=== PATIENT | female | born 1960 | race American Indian/Alaskan Native ===

== ENCOUNTER 2018-09-12 13:44 | Emergency (ER) | payer MEDICAID ==
[2018-09-12] MEDS ORDERED: NACL 0.9% 1000 ML 1,000 ML IV ONE ×2 (14:18→16:16)
--- NOTE | 2018-09-12 14:20 | Emergency Department Report ---
Blank Doc - Documentation Documentation: This is a 58 y.o. female that presents abdominal pain and vomiting x 4 days. History of HTN, COPD. Patient reports eating tuna at [employer] Friday and shortly after felt abdominal pain and vomiting. This initial assessment diagnostic orders/clinical plan/treatment(s) is/are saldana bject to change based on patient's health status, clinical progression and re- assessment by fellow clinical providers in the ED. Further treatment and workup at subsequent clinical providers discretion. Patient/guardians urged not to elope from ED s their condition may be serious if not clinically assessed and managed. Initial orders include: 1- Labs Fast track for further evaluation.
[2018-09-12 14:21] VITALS: BP 133/79
[2018-09-12 14:38] LABS: Basophils # (Auto) 0.1 K/mm3 (0.0-0.1); Basophils % (Auto) 1.2 % (0.0-1.8); Eosinophils # (Auto) 0.1 K/mm3 (0.0-0.4); Eosinophils % (Auto) 0.6 % (0.0-4.3); Hematocrit 39.1 % (30.3-42.9); Hemoglobin 12.2 gm/dl (10.1-14.3); Lymphocytes # (Auto) 1.8 K/mm3 (1.2-5.4); Lymphocytes % (Auto) 19.5 % (13.4-35.0); Mean Corpuscular HGB Conc 31 % (30-34); Mean Corpuscular Volume 71 fl (79-97); Monocytes # (Auto) 0.3 K/mm3 (0.0-0.8); Monocytes % (Auto) 3.3 % (0.0-7.3); Platelet Count 278 K/mm3 (140-440); Red Blood Count 5.51 M/mm3 (3.65-5.03)
[2018-09-12 15:01] LABS: Alanine Aminotransferase 19 units/L (7-56); Albumin 4.5 g/dL (3.9-5); BUN/Creatinine Ratio 12; Blood Urea Nitrogen 7 mg/dL (7-17); Calcium 9.1 mg/dL (8.4-10.2); Hemolysis Index 4
[2018-09-12 15:17] LABS: Bacteria,Urine 1+ /HPF (Negative); Bilirubin,Urine NEG (Negative); Blood,Urine NEG (Negative); Color,Urine Yellow (Yellow); Hyaline Casts,Urine 1 /LPF; Mucus,Urine 1+ /HPF; Protein,Urine <15 mg/dL mg/dL (Negative)
[2018-09-12] MEDS ORDERED: ZOFRAN IV ONE (16:16)
[2018-09-12] MEDS ORDERED: ZOFRAN ONE (16:19)
[2018-09-12] MEDS ORDERED: MORPHINE IV ONE (16:53)
--- NOTE | 2018-09-12 17:02 | Emergency Department Report ---
ED Abdominal Pain HPI - General Chief Complaint: Abdominal Pain Stated Complaint: ABD PAIN/VOMITING Time Seen by Provider: 09/12/18 14:16 Source: patient Mode of arrival: Ambulatory Limitations: No Limitations - History of Present Illness Initial Comments: 58-year-old female presents to ED with upper abdominal pain, nausea and vomiting 4 days. Patient states pain began after eating turna and ham from [employer]. Patient reported subjective fever, denies diarrhea. Patient states she has "stomach problems," but has not yet seen a bed laborer. MD Complaint: abdominal pain -: days(s) (4) Location: epigastric Radiation: none Migration to: no migration Severity: severe Severity scale (0 -10): 10 Quality: cramping Consistency: intermittent Improves With: nothing Worsens With: nothing Context: possible food poisoning Associated Symptoms: nausea, vomiting, fever. denies: diarrhea - Related Data Previous Rx's Medication Instructions Recorded Last Taken Type Dicyclomine [Bentyl] 20 mg PO QID PRN #20 tablet 09/12/18 Unknown Rx Ondansetron [Zofran Odt] 4 mg PO Q8HR PRN #20 tab.rapdis 09/12/18 Unknown Rx Allergies Allergy/AdvReac Type Severity Reaction Status Date / Time No Known Allergies Allergy Unverified 09/12/18 14:17 ED Review of Systems ROS: Stated complaint: ABD PAIN/VOMITING Other details as noted in HPI Comment: All other systems reviewed and negative Constitutional: fever Cardiovascular: denies: chest pain Gastrointestinal: abdominal pain, nausea, vomiting. denies: diarrhea ED Past Medical Hx - Past Medical History Previous Medical History?: Yes Hx Psychiatric Treatment: Yes Hx COPD: Yes Additional medical history: Depression, Sleep apnea , Cluster headaches - Surgical History Past Surgical History?: No - Social History Smoking Status: Current Every Day Smoker Substance Use Type: Alcohol - Medications Home Medications: Home Medications Medication Instructions Recorded Confirmed Last Taken Type Dicyclomine [Bentyl] 20 mg PO QID PRN #20 tablet 09/12/18 Unknown Rx Ondansetron [Zofran Odt] 4 mg PO Q8HR PRN #20 tab.rapdis 09/12/18 Unknown Rx ED Physical Exam - General Limitations: No Limitations General appearance: alert, other (uncomfortable, actively vomiting) - Head Head exam: Present: atraumatic, normocephalic - Eye Eye exam: Present: normal appearance - ENT ENT exam: Present: mucous membranes moist - Neck Neck exam: Present: normal inspection - Respiratory Respiratory exam: Present: normal lung sounds bilaterally. Absent: respiratory distress - Cardiovascular Cardiovascular Exam: Present: regular rate, normal rhythm - GI/Abdominal GI/Abdominal exam: Present: soft, tenderness (epigastric, LUQ, RUQ tenderness). Absent: distended - Extremities Exam Extremities exam: Present: normal inspection - Neurological Exam Neurological exam: Present: alert, oriented X3 - Psychiatric Psychiatric exam: Present: normal affect, normal mood - Skin Skin exam: Present: warm, dry, intact, normal color ED Course Vital Signs 09/12/18 14:17 Temperature 99 F Pulse Rate 91 H Respiratory 18 Rate Blood Pressure 133/79 Blood Pressure 133/79 [Right] O2 Sat by Pulse 97 Oximetry ED Medical Decision Making - Lab Data Result diagrams: 09/12/18 14:29 09/12/18 14:29 - Radiology Data Radiology results: pending, image reviewed interpreted by me: Abd series: lungs clear; nonspecific bowel gas pattern * PACS system down; no official interpretation at this time - Medical Decision Making 54-year-old female with nausea, vomiting, upper abdominal pain. Labs unremarkable, normal WBCs, normal lipase, normal LFTs. Abdominal series shows nonspecific bowel pattern, no evidence of obstruction. Patient given IV fluids, Zofran, morphine. Patient feeling much better at this time. Feels comfortable with discharge home. Will give prescription for Zofran and Bentyl. Will also give follow-up information for [facility]. Return precautions given. - Differential Diagnosis gastritis, pancreatitis, hepatitis Critical care attestation.: If time is entered above; I have spent that time in minutes in the direct care of this critically ill patient, excluding procedure time. ED Disposition Clinical Impression: Gastritis Disposition: DC-01 TO HOME OR SELFCARE Is pt being admited?: No Condition: Stable Instructions: Abdominal Pain (ED) Prescriptions: Dicyclomine [Bentyl] 20 mg PO QID PRN #20 tablet PRN Reason: abdominal pain Ondansetron [Zofran Odt] 4 mg PO Q8HR PRN #20 tab.rapdis PRN Reason: Vomiting Referrals: MAIRA TRINIDAD MD [Primary Care Provider] - 3-5 Days [facility] [Provider Group] - 3-5 Days Time of Disposition: 18:00
--- NOTE | 2018-09-14 15:51 | XRay Report ---
FINAL REPORT EXAM: XR ABD SERIES W CXR 1V HISTORY: abd pain, vomiting TECHNIQUE: PA view of the chest and supine and erect views of the abdomen PRIORS: None. FINDINGS: Chest: Lungs are clear. Trachea is midline. Cardiac and mediastinal silhouettes are unremarkable. Bon y structures are intact. Abdomen: The bowel gas pattern is nonspecific. No free air is identified. Soft tissues have no evide nce for mass shadows or calcifications. The bony structures are intact. IMPRESSION: 1. No acute cardiopulmonary process seen. 2. Nonspecific, nonobstructive bowel gas pattern with no acute process noted.
== END 2018-09-12 18:50 | disposition home or self-care (01) ==
LOC: ED 13:44
DX: K29.70 Gastritis, unspecified, without bleeding (principal); J45.909 Unspecified asthma, uncomplicated; F32.9 Major depressive disorder, single episode, unspecified; F17.200 Nicotine dependence, unspecified, uncomplicated
CPT/HCPCS: 36415; 74022; 80053; 81001; 83690; 85025; 96361; 96374; 96375; 99284; J2270; J2405; J7030

== ENCOUNTER 2018-09-14 20:16 | Emergency (ER) | payer MEDICAID ==
--- NOTE | 2018-09-14 20:37 | Emergency Department Report ---
Blank Doc - Documentation Documentation: This is a 58-year-old female that presents with abdominal pain with nausea and vomiting. Patient was here last week and has not filled her medications. This initial assessment diagnostic orders/clinical plan/treatment(s) is/are subject to change based on patient's health status, clinical progression and re- assessment by fellow clinical providers in the ED. Further treatment and workup at subsequent clinical providers discretion. Patient/guardians urged not to elope from ED s their condition may be serious if not clinically assessed and managed. Initial orders include: 1-Patient sent to MAIN ED for further evaluation and treatment 2- Labs 3- UA
[2018-09-14] MEDS ORDERED: NACL 0.9% 1000 ML 1,000 ML IV ONE (20:38)
[2018-09-14] MEDS ORDERED: ZOFRAN IV ONE (20:38)
[2018-09-14] MEDS ORDERED: MORPHINE IV ONE (20:38)
[2018-09-14 21:10] LABS: Basophils # (Auto) 0.1 K/mm3 (0.0-0.1); Basophils % (Auto) 0.7 % (0.0-1.8); Eosinophils # (Auto) 0.1 K/mm3 (0.0-0.4); Eosinophils % (Auto) 1.4 % (0.0-4.3); Lymphocytes % (Auto) 35.7 % (13.4-35.0); Mean Corpuscular HGB Conc 31 % (30-34); Mean Corpuscular Volume 71 fl (79-97); Monocytes # (Auto) 0.5 K/mm3 (0.0-0.8); Platelet Count 253 K/mm3 (140-440); Red Blood Count 5.29 M/mm3 (3.65-5.03)
[2018-09-14 21:22] LABS: Hematocrit 37.7 % (30.3-42.9); Hemoglobin 11.5 gm/dl (10.1-14.3); Red Cell Distribution Width 24.4 % (13.2-15.2)
[2018-09-14 21:34] LABS: Alanine Aminotransferase 16 units/L (7-56); Albumin 4.3 g/dL (3.9-5); BUN/Creatinine Ratio 10; Blood Urea Nitrogen 8 mg/dL (7-17); Calcium 8.9 mg/dL (8.4-10.2); Hemolysis Index 86
--- NOTE | 2018-09-14 22:15 | XRay Report ---
FINAL REPORT PROCEDURE: Abdominal series. TECHNIQUE: Supine and upright views of the abdomen, upright chest. HISTORY: Nausea and vomiting, abdominal pain. COMPARISON: Abdominal series 09/12/2018. FINDINGS: The heart and mediastinum appear normal. The lungs are clear and well expanded. There are no pleural effusions. There is no evidence of pneumoperitoneum. The bowel gas pattern is normal. The soft tissue s are unremarkable. There is atherosclerotic calcification in the abdominal aorta and common iliac ar teries. The regional skeleton appears intact. IMPRESSION: No evidence of acute abdominal disease.
[2018-09-14 23:48] LABS: Amorphous Crystals,Urine 1+; Bacteria,Urine 1+ /HPF (Negative); Bilirubin,Urine NEG (Negative); Blood,Urine NEG (Negative); Color,Urine Amber (Yellow); Hyaline Casts,Urine 126 /LPF; Mucus,Urine 2+ /HPF
[2018-09-15] MEDS ORDERED: REGLAN IV ONE (00:54)
--- NOTE | 2018-09-15 00:56 | Emergency Department Report ---
HPI - General Chief Complaint: Abdominal Pain Time Seen by Provider: 09/14/18 20:36 - HPI HPI: 58-year-old female presents to the emergency department from home via EMS with complaint of nausea, vomiting and generalized abdominal pain. This is been going on for the past week. The patient was seen here 2 days ago for the same symptoms. She was discharged home with a prescription for Bentyl and Zofran but says that she has been unable to fill that prescription. She has a past medical history of COPD, cluster headaches and depression. No recent travel or sick contacts at home. She goes to [place] for primary care. ED Past Medical Hx - Past Medical History Hx Psychiatric Treatment: Yes Hx COPD: Yes Additional medical history: Depression, Sleep apnea , Cluster headaches - Surgical History Past Surgical History?: No - Social History Smoking Status: Unknown if ever smoked Substance Use Type: None - Medications Home Medications: Home Medications Medication Instructions Recorded Confirmed Last Taken Type Dicyclomine [Bentyl] 20 mg PO QID PRN #20 tablet 09/15/18 Unknown Rx Ondansetron [Zofran ODT TAB] 4 mg PO Q8HR PRN #20 tab.rapdis 09/15/18 Unknown R x ED Review of Systems ROS: Stated complaint: ABD PAIN Other details as noted in HPI Comment: All other systems reviewed and negative Constitutional: denies: chills, fever Eyes: denies: eye pain, vision change ENT: denies: ear pain, throat pain Respiratory: denies: cough, shortness of breath Cardiovascular: denies: chest pain, palpitations Gastrointestinal: abdominal pain, nausea, vomiting Genitourinary: denies: dysuria, discharge Musculoskeletal: denies: back pain, arthralgia Skin: denies: rash, lesions Neurological: denies: headache, weakness Physical Exam - Physical Exam Vital Signs: Vital Signs 09/14/18 09/14/18 20:37 20:54 Temperature 97.9 F Pulse Rate 98 H Respiratory 18 20 Rate Blood Pressure 109/67 O2 Sat by Pulse 93 Oximetry Physical Exam: GENERAL: The patient is well-developed well-nourished. HEENT: Normocephalic. Atraumatic. Patient has moist mucous membranes. EYES: Extraocular motions are intact. NECK: Supple. Trachea is midline. CHEST/LUNGS: Clear to auscultation. There is no respiratory distress noted. HEART/CARDIOVASCULAR: Regular. There is no tachycardia. There is no obvious murmur. ABDOMEN: Abdomen is soft. Mild generalized tenderness to palpation. No guarding. Patient has normal bowel sounds. There is no abdominal distention. SKIN: Skin is warm and dry. NEURO: The patient is awake, alert, and oriented. The patient is cooperative. The patient has no focal neurologic deficits. The patient has normal speech. MUSCULOSKELETAL: There is no tenderness or deformity. There is no evidence of acute injury. ED Course Vital Signs 09/14/18 09/14/18 20:37 20:54 Temperature 97.9 F Pulse Rate 98 H Respiratory 18 20 Rate Blood Pressure 109/67 O2 Sat by Pulse 93 Oximetry ED Medical Decision Making - Lab Data Result diagrams: 09/14/18 20:35 09/14/18 20:35 - Radiology Data Radiology results: report reviewed, image reviewed interpreted by me: Chest x-ray does not show any pneumothorax, pleural effusion, pneumonia or obvious focal consolidation. Abdominal x-ray shows nonspecific nonobstructive bowel gas. EXAM: CT ABDOMEN PELVIS W CON HISTORY: Abd pain epigastric TECHNIQUE: Routine axial imaging was obtained of the abdomen and pelvis following the intravenous injection of 100 cc of Omnipaque 300. Delayed imaging was obtained through the kidneys ureters and bladder. Sagittal and coronal reconstructions were reviewed. FINDINGS: The lung bases are negative for infiltrates or effusions. The liver, gallbladder, biliary tree, pancreas, spleen, and adrenal glands appear normal. The kidneys enhance normally. There is no evidence of hydronephrosis. There calcification of the abdominal aorta which otherwise is normal in caliber. The portal vein enhances normally. The stomach is normal in size without evidence of mucosal edema. The bowel loops are normal in caliber and course. There are scattered uncomplicated diverticula in the colon. The appendix is not enlarged. In the pelvis the uterus and bladder appear normal. There is no evidence of free fluid or adenopathy. The skeletal structures reveal arthritic changes in the lower lumbar spine. IMPRESSION: No acute process in the abdomen and pelvis. Uncomplicated colonic diverticulosis. 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 Transcribed By: NIRALI Dictated By: DARREL LYNN MD Electronically Authenticated By: DARREL LYNN MD Signed Date/Time: 09/15/18 0302 - Medical Decision Making Patient presents to the emergency department with a one-week history of nausea, vomiting and abdominal pain. The patient was here a few days ago and had a relatively normal workup and was discharged home with some Bentyl and Zofran. However the patient says that she gave the prescription to her nephew and is unsure whether it was actually dropped off but she has not been able to get the medication. Patient's labs today have been mostly unremarkable including a CBC, metabolic panel and urinalysis but the lipase was slightly elevated at 91. This is most likely secondary to her vomiting but since she did not have a CT imaging study of the abdomen and pelvis during her last visit, I decided to do that this time. CT did not show any acute intra-abdominal or pelvic pathology and showed some chronic colonic diverticulosis. The patient was given some Zofran, pain medication and IV fluid resuscitation. She was reevaluated multiple times over multiple hours and it has improved. Vital signs stable throughout her ED course including being afebrile. The patient was able to pass an oral challenge. She will be discharged home with the Bentyl and Zofran prescriptions again, as well as referrals for gastroenterology. She will return to the ER with any worsening of her symptoms or any acute distress. - Differential Diagnosis food poisoning, celiac, diverticulitis, colitis, gastritis Critical Care Time: No Critical care attestation.: If time is entered above; I have spent that time in minutes in the direct care of this critically ill patient, excluding procedure time. ED Disposition Clinical Impression: Dehydration Abdominal pain Qualifiers: Abdominal location: generalized Qualified Code(s): R10.84 - Generalized abdominal pain Nausea & vomiting Qualifiers: Vomiting type: unspecified Vomiting Intractability: non-intractable Qualified Code(s): R11.2 - Nausea with vomiting, unspecified Disposition: DC-01 TO HOME OR SELFCARE Is pt being admited?: No Condition: Stable Instructions: Dehydration (ED), Acute Nausea and Vomiting (ED), Abdominal Pain (ED) Additional Instructions: Please follow-up with your primary care physician and a election supervisor. I have given you a referral for treatment of large gastroenterology groups. Increase your rehydration. Return to the emergency Department with any worsening of your symptoms or any acute distress. Prescriptions: Dicyclomine [Bentyl] 20 mg PO QID PRN #20 tablet PRN Reason: abdominal pain Ondansetron [Zofran ODT TAB] 4 mg PO Q8HR PRN #20 tab.rapdis PRN Reason: Vomiting Referrals: [facility] [Outside] - 3-5 Days [facility] [Provider Group] - 3-5 Days [facility] [Provider Group] - 3-5 Days Time of Disposition: 03:43
[2018-09-15 01:12] VITALS: BP 114/61
--- NOTE | 2018-09-15 03:02 | Cat Scan Report ---
FINAL REPORT EXAM: CT ABDOMEN PELVIS W CON HISTORY: Abd pain epigastric TECHNIQUE: Routine axial imaging was obtained of the abdomen and pelvis following the intravenous in jection of 100 cc of Omnipaque 300. Delayed imaging was obtained through the kidneys ureters and blad grace. Sagittal and coronal reconstructions were reviewed. FINDINGS: The lung bases are negative for infiltrates or effusions. The liver, gallbladder, biliary tree, pancreas, spleen, and adrenal glands appear normal. The kidneys enhance normally. There is no evidence of hydronephrosis. There calcification of the abdominal aorta which otherwise is normal in caliber. The portal vein enhances normally. The stomach is normal in si ze without evidence of mucosal edema. The bowel loops are normal in caliber and course. There are sca ttered uncomplicated diverticula in the colon. The appendix is not enlarged. In the pelvis the uterus and bladder appear normal. There is no evidence of free fluid or adenopathy. The skeletal structures reveal arthritic changes in the lower lumbar spine. IMPRESSION: No acute process in the abdomen and pelvis. Uncomplicated colonic diverticulosis. 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
== END 2018-09-15 04:13 | disposition home or self-care (01) ==
LOC: ED 20:16
DX: E86.0 Dehydration (principal); J44.9 Chronic obstructive pulmonary disease, unspecified; F32.9 Major depressive disorder, single episode, unspecified
CPT/HCPCS: 36415; 74022; 74177; 80053; 81001; 83690; 85025; 96361; 96374; 96375; 99285; J2270; J2405; J2765; J7030; Q9967

== ENCOUNTER 2018-09-23 02:47 | Inpatient (IN) | payer MEDICAID ==
[2018-09-23] MEDS ORDERED: NACL 0.9% 1000 ML 1,000 ML IV ONE ×2 (02:58→05:09)
[2018-09-23] MEDS ORDERED: ZOFRAN ONE (03:16)
[2018-09-23] MEDS ORDERED: PROTONIX IV ONE (03:19)
[2018-09-23] MEDS ORDERED: ZOFRAN IV ONE (03:19)
--- NOTE | 2018-09-23 03:24 | Emergency Department Report ---
ED Abdominal Pain HPI - General Chief Complaint: Abdominal Pain Stated Complaint: ABD PAIN Time Seen by Provider: 09/23/18 03:14 Source: patient, EMS Mode of arrival: Stretcher Limitations: No Limitations - History of Present Illness Initial Comments: Patient is 58 years old female with history of COPD. Patient presented to the ER via EMS and plan epigastric abdominal pain, crampy in nature associated with nausea and coffee ground emesis . Patient found to have a blood pressure of 88/42. Patient denied any fever or chills. Patient denied any diarrhea, hematochezia or melena. Patient was seen here 6 days ago and had a negative CT abdomen and pelvis. MD Complaint: abdominal pain Location: epigastric Radiation: none Migration to: no migration Severity scale (0 -10): 10 Quality: cramping - Related Data Previous Rx's Medication Instructions Recorded Last Taken Type Dicyclomine [Bentyl] 20 mg PO QID PRN #20 tablet 09/15/18 Unknown Rx Ondansetron [Zofran ODT TAB] 4 mg PO Q8HR PRN #20 tab.rapdis 09/15/18 Unknown Rx Allergies Allergy/AdvReac Type Severity Reaction Status Date / Time lisinopril AdvReac Unknown Verified 09/23/18 02:55 ED Review of Systems ROS: Stated complaint: ABD PAIN Other details as noted in HPI Comment: All other systems reviewed and negative Constitutional: denies: chills, fever Respiratory: denies: cough, orthopnea, shortness of breath, SOB with exertion, SOB at rest, wheezing Cardiovascular: denies: chest pain, palpitations Gastrointestinal: abdominal pain, nausea, vomiting. denies: diarrhea, constipation, hematemesis, melena, hematochezia Musculoskeletal: denies: back pain Neurological: denies: headache, weakness, numbness, paresthesias, confusion ED Past Medical Hx - Past Medical History Previous Medical History?: Yes Hx Hypertension: Yes Hx Psychiatric Treatment: Yes Hx COPD: Yes Additional medical history: Depression, Sleep apnea , Cluster headaches, Cholitis - Surgical History Past Surgical History?: No - Social History Smoking Status: Current Every Day Smoker Substance Use Type: Alcohol, Prescribed - Medications Home Medications: Home Medications Medication Instructions Recorded Confirmed Last Taken Type Dicyclomine [Bentyl] 20 mg PO QID PRN #20 tablet 09/15/18 Unknown Rx Ondansetron [Zofran ODT TAB] 4 mg PO Q8HR PRN #20 tab.rapdis 09/15/18 Unknown Rx ED Physical Exam - General Limitations: No Limitations General appearance: alert, in no apparent distress - Head Head exam: Present: atraumatic, normocephalic, normal inspection - Eye Eye exam: Present: normal appearance - ENT ENT exam: Present: normal exam, normal orophraynx, mucous membranes moist - Neck Neck exam: Present: normal inspection, full ROM. Absent: tenderness, meningismus - Respiratory Respiratory exam: Present: normal lung sounds bilaterally. Absent: respiratory distress, wheezes, rales, rhonchi, stridor, chest wall tenderness, accessory muscle use, decreased breath sounds, prolonged expiratory - Cardiovascular Cardiovascular Exam: Present: regular rate, normal rhythm, normal heart sounds - GI/Abdominal GI/Abdominal exam: Present: soft, tenderness (epigastric tenderness), normal bowel sounds. Absent: distended, guarding, rebound, rigid, mass, bruit, pulsatile mass, hernia - Rectal Rectal exam: Present: normal inspection, normal rectal tone, heme (-) stool. Absent: black stool, bloody stool, fecal impaction - Extremities Exam Extremities exam: Present: normal inspection, full ROM, normal capillary refill - Back Exam Back exam: Present: normal inspection, full ROM. Absent: tenderness, CVA tenderness (R), CVA tenderness (L), muscle spasm, paraspinal tenderness, vertebral tenderness - Neurological Exam Neurological exam: Present: alert, oriented X3, CN II-XII intact, normal gait, reflexes normal - Skin Skin exam: Present: warm, intact, normal color ED Course Vital Signs 09/23/18 09/23/18 09/23/18 03:10 03:15 03:45 Temperature 97.8 F Pulse Rate 86 95 H 80 Respiratory 18 18 13 Rate Blood Pressure 86/62 104/70 Blood Pressure 86/62 [Left] O2 Sat by Pulse 100 98 Oximetry - Reevaluation(s) Reevaluation #1: 09/23/18 04:22 Patient evaluated by me multiple times. Patient stated that she is feeling better. - Consultations Consultation #1: 09/23/18 04:33 I discuss the patient is Dr. Bennett Hudson from gastroenterology. Dr. Guajardo advised patient to be nothing by mouth for possible upper endoscopy this morning. ED Medical Decision Making - Lab Data Result diagrams: 09/23/18 03:09 09/23/18 03:09 - Medical Decision Making Patient is 58 years old female with history of COPD. Patient presented to the ER via EMS and plan epigastric abdominal pain, crampy in nature associated with nausea and coffee ground emesis . Patient found to have a blood pressure of 88/42. Patient denied any fever or chills. Patient denied any diarrhea, hematochezia or melena. Patient was seen here 6 days ago and had a negative CT abdomen and pelvis. Patient received normal saline 1 L and she responded with a blood pressure 122/68 now. No vomiting noticed in the emergency room. I discussed the patient is Dr. Bennett St from gastroenterology. I discussed the patient is Dr. Adler, she agreed to admit the patient to medical service. Critical Care Time: Yes Critical care time in (mins) excluding proc time.: 30 Critical care attestation.: If time is entered above; I have spent that time in minutes in the direct care of this critically ill patient, excluding procedure time. ED Disposition Clinical Impression: GI (gastrointestinal hemorrhage) Disposition: - OP ADMIT IP TO THIS HOSP Is pt being admited?: Yes Condition: Stable Instructions: Abdominal Pain (ED)
[2018-09-23 03:40] LABS: Basophils # (Auto) 0.1 K/mm3 (0.0-0.1); Eosinophils # (Auto) 0.2 K/mm3 (0.0-0.4); Eosinophils % (Auto) 1.9 % (0.0-4.3); Hematocrit 27.8 % (30.3-42.9); Hemoglobin 8.5 gm/dl (10.1-14.3); Lymphocytes # (Auto) 2.4 K/mm3 (1.2-5.4); Lymphocytes % (Auto) 23.2 % (13.4-35.0); Mean Corpuscular HGB Conc 31 % (30-34); Mean Corpuscular Volume 73 fl (79-97); Monocytes % (Auto) 9.6 % (0.0-7.3); Platelet Count 321 K/mm3 (140-440); Red Blood Count 3.84 M/mm3 (3.65-5.03)
--- NOTE | 2018-09-23 03:41 | XRay Report ---
FINAL REPORT PROCEDURE: XR ABD SERIES W CXR 1V TECHNIQUE: Abdominal series complete, including supine and upright AP views of the abdomen and front al chest. HISTORY: abdominal pain COMPARISON: No prior studies are available for comparison. FINDINGS: Heart: Normal. Mediastinum/Vessels: Normal. Lungs/Pleural space: Normal. Bowel gas pattern: Nonobstructive. Masses or calcifications: None. Bony structures: No acute osseous abnormality. Other: No free intraperitoneal air. IMPRESSION: No acute abnormality.
[2018-09-23 03:52] LABS: Red Cell Distribution Width 22.3 % (13.2-15.2)
[2018-09-23 04:02] LABS: Alanine Aminotransferase 17 units/L (7-56); Albumin 3.8 g/dL (3.9-5); BUN/Creatinine Ratio 9; Blood Urea Nitrogen 9 mg/dL (7-17); Calcium 8.9 mg/dL (8.4-10.2); Hemolysis Index 9
[2018-09-23 04:48] LABS: Bacteria,Urine 1+ /HPF (Negative); Bilirubin,Urine NEG (Negative); Blood,Urine NEG (Negative); Color,Urine Yellow (Yellow); Mucus,Urine FEW /HPF; Protein,Urine <15 mg/dL mg/dL (Negative); Urobilinogen,Urine < 2.0 mg/dL (<2.0)
[2018-09-23] MEDS ORDERED: PROTONIX 80 MG in NACL 0.9% 100 ML IV SCH (05:00)
[2018-09-23] MEDS ORDERED: TYLENOL PO PRN (05:07)
[2018-09-23] MEDS ORDERED: MORPHINE IV PRN (05:07)
[2018-09-23] MEDS ORDERED: ZOFRAN IV PRN (05:07)
[2018-09-23] MEDS ORDERED: SODIUM CHLORIDE FLUSH SYRINGE 10 ML IV PRN (05:07)
[2018-09-23] MEDS ORDERED: KCL 10 MEQ in NACL 0.9% 1000 ML 1,000 ML IV SCH (05:15)
--- NOTE | 2018-09-23 05:15 | History and Physical Report ---
History of Present Illness Date of examination: 09/23/18 Chief complaint: Abdominal pain History of present illness: Patient is a 58 year old female with history of COPD and hy pertension who presented to the ED on account of generalized abdominal pain. She described it as sharp in character, rated 10 over 10, nonradiating and constant in duration. She also reported coffee-ground emesis and passage of dark stool. She has associated headaches, lightheadedness and generalized weakness. No constipation, diarrhea, dysuria or frequency. She denied chest pain, shortness of breath, palpitation, fever, chills, cough, leg swelling, sore throat, runny nose or congestion, orthopnea or PND. No syncope or loss of consciousness. She denies chronic NSAID use. Patient stated that she recently went to [facility] and was told that she has colitis. She reported having colonoscopy about 2 or 3 years ago and was found to have hemorrhoid for which she underwent hemorrhoidectomy Past History Past Medical History: COPD, hypertension, other (depression, obstructive sleep apnea (not on CPAP)) Past Surgical History: Other (hemorrhoidectomy) Social history: smoking (she has 40 years history of cigarette smoking. She smokes one pack every 4 days. She admits to occasional alcohol use but denies illicit drug use) Family history: other (reviewed and noncontributory) Medications and Allergies Allergies Allergy/AdvReac Type Severity Reaction Status Date / Time lisinopril AdvReac Unknown Verified 09/23/18 02:55 Home Medications Medication Instructions Recorded Confirmed Last Taken Type Dicyclomine [Bentyl] 20 mg PO QID PRN #20 tablet 09/15/18 Unknown Rx Ondansetron [Zofran ODT TAB] 4 mg PO Q8HR PRN #20 tab.rapdis 09/15/18 Unknown Rx Active Meds: Active Medications Sodium Chloride (Nacl 0.9% 1000 Ml) 1,000 mls @ 250 mls/hr IV ONCE ONE Stop: 09/23/18 06:57 Last Admin: 09/23/18 03:21 Dose: 250 mls/hr Documented by: Pantoprazole Sodium 80 mg/ (Sodium Chloride) 100 mls @ 10 mls/hr IV DIRECT JARETH Review of Systems All systems: negative (except as documented in the HPI, all other systems were reviewed and negative) Exam - Constitutional Vitals: Temp Pulse Resp BP Pulse Ox 97.8 F 80 13 104/70 98 09/23/18 03:10 09/23/18 03:45 09/23/18 03:45 09/23/18 03:45 09/23/18 03:15 General appearance: Present: no acute distress, well-nourished - EENT Eyes: Present: PERRL, EOM intact ENT: hearing intact, clear oral mucosa - Neck Neck: Present: supple, normal ROM - Respiratory Respiratory effort: normal Respiratory: bilateral: CTA - Cardiovascular Heart Sounds: Present: S1 & S2. Absent: rub, click - Extremities Extremities: pulses symmetrical, No edema Peripheral Pulses: within normal limits - Abdominal General gastrointestinal: Present: soft, tender (epigastric), non-distended, normal bowel sounds Female genitourinary: Present: normal - Integumentary Integumentary: Present: clear, warm, dry - Musculoskeletal Musculoskeletal: gait normal, strength equal bilaterally - Psychiatric Psychiatric: appropriate mood/affect, intact judgment & insight - Neurologic Neurologic: CNII-XII intact, moves all extremities Results - Labs CBC & Chem 7: 09/23/18 03:09 09/23/18 03:09 Labs: Laboratory Last Values WBC 10.4 K/mm3 (4.5-11.0) 09/23/18 03:09 RBC 3.84 M/mm3 (3.65-5.03) 09/23/18 03:09 Hgb 8.5 gm/dl (10.1-14.3) L 09/23/18 03:09 Hct 27.8 % (30.3-42.9) L 09/23/18 03:09 MCV 73 fl (79-97) L 09/23/18 03:09 MCH 22 pg (28-32) L 09/23/18 03:09 MCHC 31 % (30-34) 09/23/18 03:09 RDW 22.3 % (13.2-15.2) H 09/23/18 03:09 Plt Count 321 K/mm3 (140-440) 09/23/18 03:09 Lymph % (Auto) 23.2 % (13.4-35.0) 09/23/18 03:09 [place] % (Auto) 9.6 % (0.0-7.3) H 09/23/18 03:09 Eos % (Auto) 1.9 % (0.0-4.3) 09/23/18 03:09 Baso % (Auto) 1.0 % (0.0-1.8) 09/23/18 03:09 Lymph # 2.4 K/mm3 (1.2-5.4) 09/23/18 03:09 [place] # 1.0 K/mm3 (0.0-0.8) H 09/23/18 03:09 Eos # 0.2 K/mm3 (0.0-0.4) 09/23/18 03:09 Baso # 0.1 K/mm3 (0.0-0.1) 09/23/18 03:09 Seg Neutrophils % 64.3 % (40.0-70.0) 09/23/18 03:09 Seg Neutrophils # 6.7 K/mm3 (1.8-7.7) 09/23/18 03:09 Sodium 134 mmol/L (137-145) L 09/23/18 03:09 Potassium 3.7 mmol/L (3.6-5.0) 09/23/18 03:09 Chloride 95.3 mmol/L (98-107) L 09/23/18 03:09 Carbon Dioxide 28 mmol/L (22-30) 09/23/18 03:09 Anion Gap 14 mmol/L 09/23/18 03:09 BUN 9 mg/dL (7-17) 09/23/18 03:09 Creatinine 1.0 mg/dL (0.7-1.2) 09/23/18 03:09 Estimated GFR > 60 ml/min 09/23/18 03:09 BUN/Creatinine Ratio 9 % 09/23/18 03:09 Glucose 120 mg/dL (65-100) H 09/23/18 03:09 Lactic Acid 2.50 mmol/L (0.7-2.0) H* 09/23/18 03:43 Calcium 8.9 mg/dL (8.4-10.2) 09/23/18 03:09 Total Bilirubin 0.20 mg/dL (0.1-1.2) 09/23/18 03:09 AST 19 units/L (5-40) 09/23/18 03:09 ALT 17 units/L (7-56) 09/23/18 03:09 Alkaline Phosphatase 45 units/L (35-129) 09/23/18 03:09 Total Protein 6.1 g/dL (6.3-8.2) L 09/23/18 03:09 Albumin 3.8 g/dL (3.9-5) L 09/23/18 03:09 Albumin/Globulin Ratio 1.7 % 09/23/18 03:09 Urine Color Yellow (Yellow) 09/23/18 04:35 Urine Turbidity Slightly-cloudy (Clear) 09/23/18 04:35 Urine pH 5.0 (5.0-7.0) 09/23/18 04:35 Ur Specific [place] 1.003 (1.003-1.030) 09/23/18 04:35 Urine Protein <15 mg/dl mg/dL (Negative) 09/23/18 04:35 Urine Glucose (UA) Neg mg/dL (Negative) 09/23/18 04:35 Urine Ketones Neg mg/dL (Negative) 09/23/18 04:35 Urine Blood Neg (Negative) 09/23/18 04:35 Urine Nitrite Neg (Negative) 09/23/18 04:35 Urine Bilirubin Neg (Negative) 09/23/18 04:35 Urine Urobilinogen < 2.0 mg/dL (<2.0) 09/23/18 04:35 Ur Leukocyte Esterase Neg (Negative) 09/23/18 04:35 Urine WBC (Auto) 4.0 /HPF (0.0-6.0) 09/23/18 04:35 Urine RBC (Auto) 1.0 /HPF (0.0-6.0) 09/23/18 04:35 U Epithel Cells (Auto) 3.0 /HPF (0-13.0) 09/23/18 04:35 Urine Bacteria (Auto) 1+ /HPF (Negative) 09/23/18 04:35 Urine Mucus Few /HPF 09/23/18 04:35 Blood Type AB POSITIVE 09/23/18 03:25 Antibody Screen Negative 09/23/18 03:25 Assessment and Plan Assessment and plan: Upper GI bleed -On IV Protonix drip -We'll monitor H&H -GI consulted in the ED Anemia of acute loss -Patient's hemoglobin level dropped from 11.5 on 09/14/2018 to 8.5 today -We will monitor H&H and transfuse as needed Hypotension -likely secondary to volume depletion -On IV fluid, will monitor blood pressure Lactic acidosis -Probably secondary to the acute process -No evidence of active infection -We'll hydrate patient and monitor level COPD -No acute exacerbation -On PRN duonebs Depression, stable Tobacco abuse -Cessation recommended Disposition: Patient will be admitted on inpatient status. Discharge will depend on clinical course Time spent: 38 minutes
[2018-09-23] MEDS ORDERED: PROVENTIL IH PRN (05:25)
[2018-09-23] MEDS ORDERED: KCL 10MEQ/100ML 0 MEQ/0 ML BAG IV ONE (05:39)
--- NOTE | 2018-09-23 10:22 | Gastroenterology Consultation ---
<SHANDRA SIMS - Last Filed: 09/23/18 10:48> History of Present Illness - Reason for Consult Consult date: 09/23/18 GI bleed Requesting physician: MICHAEL JACOB - History of Present Illness Patient is a 58 y/o female with PMH of HTN, COPD, depression, sleep apnea, and cluster headaches on whom GI has been consulted for GI bleed. This morning patient was resting in bed w/o acute distress. She reports epigastric pain with associated N/V x 2 weeks with symptoms developing after eating a tuna sandwich from [employer]. Admits to an episode of coffee-ground emesis and black stool last , which have now resolved. Last BM was yesterday with brown stool. No hematemesis or hematochezia. No active signs of bleeding since admission per nursing. Has had some recent wt loss on approximately 5-10lbs due to current symptoms. Denies fever, CP, SOB, dysphagia, odynophagia, diarrhea, or constipation. No NSAID use. No hx of PUD or previous EGD. Drinks a 12 pack of beer a week but no hx of liver disease. Smokes 1 pack of cigarettes every 3-4 days. Reports having a colonoscopy about 2-3 years ago which showed hemorrhoids and was treated with hemorrhoidectomy. 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 Past History Past Medical History: COPD, hypertension, other (depression, obstructive sleep apnea (not on CPAP), cluster headaches) Past Surgical History: Other (hemorrhoidectomy) Social history: smoking (she has 40 years history of cigarette smoking. She smokes one pack every 4 days), other (alcohol (12 pack/week)) Family history: other (reviewed and noncontributory) Medications and Allergies Allergies Allergy/AdvReac Type Severity Reaction Status Date / Time lisinopril AdvReac Unknown Verified 09/23/18 02:55 Home Medications Medication Instructions Recorded Confirmed Last Taken Type Dicyclomine [Bentyl] 20 mg PO QID PRN #20 tablet 09/15/18 09/23/18 Unknown Rx Ondansetron [Zofran ODT TAB] 4 mg PO Q8HR PRN #20 tab.rapdis 09/15/18 09/23/18 Unknown Rx Atorvastatin [Lipitor Tab] 40 mg PO QDAY 09/23/18 09/23/18 Unknown History Ciprofloxacin HCl [Ciprofloxacin 500 mg PO BID 09/23/18 09/23/18 Unknown History TAB] Verapamil ER [Calan Sr] 180 mg PO QDAY 09/23/18 09/23/18 Unknown History metroNIDAZOLE [Metronidazole] 500 mg PO TID 09/23/18 09/23/18 Unknown History Active Meds: Active Medications Acetaminophen (Tylenol) 650 mg PO Q4H PRN PRN Reason: Pain MILD(1-3)/Fever >100.5/SOTOMAYOR Albuterol (Proventil) 2.5 mg IH Q4H PRN PRN Reason: Shortness Of Breath Pantoprazole Sodium 80 mg/ (Sodium Chloride) 100 mls @ 10 mls/hr IV DIRECT JARETH Last Admin: 09/23/18 05:31 Dose: 8 mg/hr, 10 mls/hr Documented by: Potassium Chloride 10 meq/ (Sodium Chloride) 1,005 mls @ 125 mls/hr IV DIRECT JARETH Morphine Sulfate (Morphine) 2 mg IV Q4H PRN PRN Reason: Pain, Moderate (4-6) Last Admin: 09/23/18 07:28 Dose: 2 mg Documented by: Ondansetron HCl (Zofran) 4 mg IV Q8H PRN PRN Reason: Nausea And Vomiting Sodium Chloride (Sodium Chloride Flush Syringe 10 Ml) 10 ml IV BID JARETH Sodium Chloride (Sodium Chloride Flush Syringe 10 Ml) 10 ml IV PRN PRN PRN Reason: LINE FLUSH medications reviewed/updated as required Review of Systems - Review of Systems All systems: negative Gastrointestinal: abdominal pain (epigastric), nausea, vomiting, coffee ground emesis (now resolved), other (black stool-now resolved), no diarrhea, no hematemesis, no hematochezia Exam - Constitutional Vital Signs: Temp Pulse Resp BP Pulse Ox 98.8 F 80 22 102/59 100 09/23/18 07:54 09/23/18 05:51 09/23/18 07:54 09/23/18 07:54 09/23/18 05:51 General appearance: no acute distress - EENT Eyes: PERRL, EOM intact ENT: hearing intact - Respiratory Respiratory effort: normal Respiratory: bilateral: diminished - Cardiovascular Rhythm: regular Heart Sounds: Present: S1 & S2 - Gastrointestinal General gastrointestinal: Present: soft, tender, non-distended, normal bowel sounds (slight TTP in epigastric area) - Neurologic Neurological: alert and oriented x3 - Labs CBC & Chem 7: 09/23/18 03:09 09/23/18 03:09 Lab Results: Laboratory Results - last 24 hr 09/23/18 09/23/18 09/23/18 03:09 03:09 03:25 WBC 10.4 RBC 3.84 Hgb 8.5 L Hct 27.8 L MCV 73 L MCH 22 L MCHC 31 RDW 22.3 H Plt Count 321 Lymph % (Auto) 23.2 [place] % (Auto) 9.6 H Eos % (Auto) 1.9 Baso % (Auto) 1.0 Lymph # 2.4 [place] # 1.0 H Eos # 0.2 Baso # 0.1 Seg Neutrophils % 64.3 Seg Neutrophils # 6.7 Sodium 134 L Potassium 3.7 Chloride 95.3 L Carbon Dioxide 28 Anion Gap 14 BUN 9 Creatinine 1.0 Estimated GFR > 60 BUN/Creatinine Ratio 9 Glucose 120 H Lactic Acid Calcium 8.9 Total Bilirubin 0.20 AST 19 ALT 17 Alkaline Phosphatase 45 Total Protein 6.1 L Albumin 3.8 L Albumin/Globulin Ratio 1.7 Lipase Urine Color Urine Turbidity Urine pH Ur Specific [place] Urine Protein Urine Glucose (UA) Urine Ketones Urine Blood Urine Nitrite Urine Bilirubin Urine Urobilinogen Ur Leukocyte Esterase Urine WBC (Auto) Urine RBC (Auto) U Epithel Cells (Auto) Urine Bacteria (Auto) Urine Mucus Blood Type AB POSITIVE Antibody Screen Negative 09/23/18 09/23/18 09/23/18 03:43 04:35 05:45 WBC RBC Hgb Hct MCV MCH MCHC RDW Plt Count Lymph % (Auto) [place] % (Auto) Eos % (Auto) Baso % (Auto) Lymph # [place] # Eos # Baso # Seg Neutrophils % Seg Neutrophils # Sodium Potassium Chloride Carbon Dioxide Anion Gap BUN Creatinine Estimated GFR BUN/Creatinine Ratio Glucose Lactic Acid 2.50 H* 0.80 Calcium Total Bilirubin AST ALT Alkaline Phosphatase Total Protein Albumin Albumin/Globulin Ratio Lipase Urine Color Yellow Urine Turbidity Slightly-cloudy Urine pH 5.0 Ur Specific [place] 1.003 Urine Protein <15 mg/dl Urine Glucose (UA) Neg Urine Ketones Neg Urine Blood Neg Urine Nitrite Neg Urine Bilirubin Neg Urine Urobilinogen < 2.0 Ur Leukocyte Esterase Neg Urine WBC (Auto) 4.0 Urine RBC (Auto) 1.0 U Epithel Cells (Auto) 3.0 Urine Bacteria (Auto) 1+ Urine Mucus Few Blood Type Antibody Screen 09/23/18 05:45 WBC RBC Hgb Hct MCV MCH MCHC RDW Plt Count Lymph % (Auto) [place] % (Auto) Eos % (Auto) Baso % (Auto) Lymph # [place] # Eos # Baso # Seg Neutrophils % Seg Neutrophils # Sodium Potassium Chloride Carbon Dioxide Anion Gap BUN Creatinine Estimated GFR BUN/Creatinine Ratio Glucose Lactic Acid Calcium Total Bilirubin AST ALT Alkaline Phosphatase Total Protein Albumin Albumin/Globulin Ratio Lipase 41 Urine Color Urine Turbidity Urine pH Ur Specific [place] Urine Protein Urine Glucose (UA) Urine Ketones Urine Blood Urine Nitrite Urine Bilirubin Urine Urobilinogen Ur Leukocyte Esterase Urine WBC (Auto) Urine RBC (Auto) U Epithel Cells (Auto) Urine Bacteria (Auto) Urine Mucus Blood Type Antibody Screen Assessment and Plan 1.epigastric pain 2.N/V 3.GI bleed? 4.CGE/black stool-resolved -afebrile -WBC, BUN (9), LFTs, and lipase-WNL -stool occult negative -H/H 8.5.8- trended down -continue to monitor H/H and transfuse as needed -hold blood thinning medications -abd CT 09/15/18 w/o acute process -colonoscopy about 2-3 years ago which showed hemorrhoids and was treated with hemorrhoidectomy per pt report -patient reports epigastric pain with N/V x 2 weeks after eating a tuna sandwich as [employer]. Had 1 episode of coffee-ground emesis and black stool last , which has now resolved. No hematemesis or diarrhea. -currently HD stable with no active signs of bleeding -etiology unclear- possible ulcer vs GB vs other -will schedule for EGD tomorrow -okay for clears today then NPO after MN -abd U/S -continue PPI and supportive care -will follow <NICOLASA YUN - Last Filed: 09/23/18 16:03> Medications and Allergies Active Meds: Active Medications Acetaminophen (Tylenol) 650 mg PO Q4H PRN PRN Reason: Pain MILD(1-3)/Fever >100.5/SOTOMAYOR Albuterol (Proventil) 2.5 mg IH Q4H PRN PRN Reason: Shortness Of Breath Potassium Chloride 10 meq/ (Sodium Chloride) 1,005 mls @ 125 mls/hr IV DIRECT [facility] Last Admin: 09/23/18 11:18 Dose: 125 mls/hr Documented by: Morphine Sulfate (Morphine) 2 mg IV Q4H PRN PRN Reason: Pain, Moderate (4-6) Last Admin: 09/23/18 07:28 Dose: 2 mg Documented by: Ondansetron HCl (Zofran) 4 mg IV Q8H PRN PRN Reason: Nausea And Vomiting Pantoprazole Sodium (Protonix) 40 mg IV BID [facility] Sodium Chloride (Sodium Chloride Flush Syringe 10 Ml) 10 ml IV BID [facility] Last Admin: 09/23/18 11:19 Dose: 10 ml Documented by: Sodium Chloride (Sodium Chloride Flush Syringe 10 Ml) 10 ml IV PRN PRN PRN Reason: LINE FLUSH Exam - Constitutional Vital Signs: Temp Pulse Resp BP Pulse Ox 98.0 F 84 22 106/53 94 09/23/18 11:35 09/23/18 12:11 09/23/18 11:35 09/23/18 12:11 09/23/18 11:40 - Labs CBC & Chem 7: 09/23/18 15:18 09/23/18 03:09 Lab Results: Laboratory Results - last 24 hr 09/23/18 09/23/18 09/23/18 03:09 03:09 03:25 WBC 10.4 RBC 3.84 Hgb 8.5 L Hct 27.8 L MCV 73 L MCH 22 L MCHC 31 RDW 22.3 H Plt Count 321 Lymph % (Auto) 23.2 [place] % (Auto) 9.6 H Eos % (Auto) 1.9 Baso % (Auto) 1.0 Lymph # 2.4 [place] # 1.0 H Eos # 0.2 Baso # 0.1 Seg Neutrophils % 64.3 Seg Neutrophils # 6.7 Sodium 134 L Potassium 3.7 Chloride 95.3 L Carbon Dioxide 28 Anion Gap 14 BUN 9 Creatinine 1.0 Estimated GFR > 60 BUN/Creatinine Ratio 9 Glucose 120 H Lactic Acid Calcium 8.9 Total Bilirubin 0.20 AST 19 ALT 17 Alkaline Phosphatase 45 Total Protein 6.1 L Albumin 3.8 L Albumin/Globulin Ratio 1.7 Lipase Urine Color Urine Turbidity Urine pH Ur Specific [place] Urine Protein Urine Glucose (UA) Urine Ketones Urine Blood Urine Nitrite Urine Bilirubin Urine Urobilinogen Ur Leukocyte Esterase Urine WBC (Auto) Urine RBC (Auto) U Epithel Cells (Auto) Urine Bacteria (Auto) Urine Mucus Blood Type AB POSITIVE Antibody Screen Negative 09/23/18 09/23/18 09/23/18 03:43 04:35 05:45 WBC RBC Hgb Hct MCV MCH MCHC RDW Plt Count Lymph % (Auto) [place] % (Auto) Eos % (Auto) Baso % (Auto) Lymph # [place] # Eos # Baso # Seg Neutrophils % Seg Neutrophils # Sodium Potassium Chloride Carbon Dioxide Anion Gap BUN Creatinine Estimated GFR BUN/Creatinine Ratio Glucose Lactic Acid 2.50 H* 0.80 Calcium Total Bilirubin AST ALT Alkaline Phosphatase Total Protein Albumin Albumin/Globulin Ratio Lipase Urine Color Yellow Urine Turbidity Slightly-cloudy Urine pH 5.0 Ur Specific [place] 1.003 Urine Protein <15 mg/dl Urine Glucose (UA) Neg Urine Ketones Neg Urine Blood Neg Urine Nitrite Neg Urine Bilirubin Neg Urine Urobilinogen < 2.0 Ur Leukocyte Esterase Neg Urine WBC (Auto) 4.0 Urine RBC (Auto) 1.0 U Epithel Cells (Auto) 3.0 Urine Bacteria (Auto) 1+ Urine Mucus Few Blood Type Antibody Screen 09/23/18 09/23/18 05:45 15:18 WBC RBC Hgb 7.1 L Hct 23.8 L MCV MCH MCHC RDW Plt Count Lymph % (Auto) [place] % (Auto) Eos % (Auto) Baso % (Auto) Lymph # [place] # Eos # Baso # Seg Neutrophils % Seg Neutrophils # Sodium Potassium Chloride Carbon Dioxide Anion Gap BUN Creatinine Estimated GFR BUN/Creatinine Ratio Glucose Lactic Acid Calcium Total Bilirubin AST ALT Alkaline Phosphatase Total Protein Albumin Albumin/Globulin Ratio Lipase 41 Urine Color Urine Turbidity Urine pH Ur Specific [place] Urine Protein Urine Glucose (UA) Urine Ketones Urine Blood Urine Nitrite Urine Bilirubin Urine Urobilinogen Ur Leukocyte Esterase Urine WBC (Auto) Urine RBC (Auto) U Epithel Cells (Auto) Urine Bacteria (Auto) Urine Mucus Blood Type Antibody Screen Assessment and Plan Pt seen and examined. Agree with note above. pt reports improvement in abdominal pain. no signs of active bleeding at present time. will plan for egd tomorrow.
[2018-09-23] MEDS: SODIUM CHLORIDE FLUSH SYRINGE 10 ML IV SCH ×2 (11:19→23:08)
[2018-09-23 15:43] LABS: Hematocrit 23.8 % (30.3-42.9); Hemoglobin 7.1 gm/dl (10.1-14.3)
[2018-09-23] MEDS ORDERED: BENTYL PO PRN (16:44)
[2018-09-23 17:04] LABS: Iron 11 ug/dL (37-170); Total Iron Binding Capacity 380 mcg/dL (250-450)
[2018-09-23] MEDS: PROTONIX IV SCH (23:08)
[2018-09-24 07:40] LABS: Basophils # (Auto) 0.1 K/mm3 (0.0-0.1); Eosinophils # (Auto) 0.2 K/mm3 (0.0-0.4); Eosinophils % (Auto) 3.8 % (0.0-4.3); Hematocrit 25.7 % (30.3-42.9); Hemoglobin 7.8 gm/dl (10.1-14.3); Lymphocytes # (Auto) 1.9 K/mm3 (1.2-5.4); Lymphocytes % (Auto) 34.2 % (13.4-35.0); Mean Corpuscular HGB Conc 31 % (30-34); Mean Corpuscular Volume 72 fl (79-97); Monocytes # (Auto) 0.5 K/mm3 (0.0-0.8); Monocytes % (Auto) 9.6 % (0.0-7.3); Platelet Count 345 K/mm3 (140-440); Red Blood Count 3.54 M/mm3 (3.65-5.03)
[2018-09-24 08:10] LABS: BUN/Creatinine Ratio 6; Blood Urea Nitrogen 4 mg/dL (7-17); Calcium 8.3 mg/dL (8.4-10.2); Hemolysis Index 0
--- NOTE | 2018-09-24 10:02 | Ultrasound Report ---
ULTRASOUND ABDOMEN COMPLETE: TECHNIQUE: Transabdominal ultrasound with color Doppler interrogation. HISTORY: Abdominal pain, nausea and vomiting. COMPARISON: none. FINDINGS: LIVER: Normal. BILIARY SYSTEM: Normal. PANCREAS: Normal. SPLEEN: Normal. KIDNEYS: Normal. AORTA/IVC: Normal. ASCITES: None. IMPRESSION: Unremarkable exam.
--- NOTE | 2018-09-24 10:28 | Progress Note ---
Assessment and Plan Assessment and plan: 58F who pw epigastric pain, N/V x2 weeks, c/o coffee ground emesis, and melena. Drinks 12 beers a week, denies hx of liver disease pmh; copd, htn, CATHLEEN- not on cpap, cluster HAs Dx UGIB acute blood loss anemia Hypotension hx of COPD Plan cont PPI Hg dropped from 11.5 on 09/14 to 8.5, transfuse to keep hg above 8 cont IVF GI input appreciated, for EGD today DVT ppx- scds History Interval history: Review of systems Constitutional: No fevers, no malaise, no joint pains CVS: No chest pain, no orthopnea, no dyspnea on exertion, no pedal edema GI: No abdominal pain, no diarrhea, no vomiting, no constipation Respiratory: No shortness of breath, no wheezing, no coughing Hospitalist Physical - Physical exam Narrative exam: General.: Appears well, no distress, nontoxic HEENT: Moist mucous membranes, extraocular muscles intact, no lymphadenopathy Neck: supple Cardiac: S1-S2 heard Lungs: clear to auscultation bilaterally Abdomen: soft , nontender, nondistended, bowel sounds positive Extremities: no edema clubbing or cyanosis Skin: no rash or lesions Neurologic: no gross focal deficits Psych: calm, and cooperative - Constitutional Vitals: Temp Pulse Resp BP Pulse Ox 98.1 F 83 18 128/77 88 09/24/18 05:34 09/24/18 05:34 09/24/18 05:34 09/24/18 05:34 09/24/18 05:34 General appearance: Present: no acute distress, well-nourished Results - Labs CBC & Chem 7: 09/24/18 06:52 09/24/18 06:52 Labs: Laboratory Last Values WBC 5.6 K/mm3 (4.5-11.0) 09/24/18 06:52 RBC 3.54 M/mm3 (3.65-5.03) L 09/24/18 06:52 Hgb 7.8 gm/dl (10.1-14.3) L 09/24/18 06:52 Hct 25.7 % (30.3-42.9) L 09/24/18 06:52 MCV 72 fl (79-97) L 09/24/18 06:52 MCH 22 pg (28-32) L 09/24/18 06:52 MCHC 31 % (30-34) 09/24/18 06:52 RDW 23.0 % (13.2-15.2) H 09/24/18 06:52 Plt Count 345 K/mm3 (140-440) 09/24/18 06:52 Lymph % (Auto) 34.2 % (13.4-35.0) 09/24/18 06:52 [place] % (Auto) 9.6 % (0.0-7.3) H 09/24/18 06:52 Eos % (Auto) 3.8 % (0.0-4.3) 09/24/18 06:52 Baso % (Auto) 1.0 % (0.0-1.8) 09/24/18 06:52 Lymph # 1.9 K/mm3 (1.2-5.4) 09/24/18 06:52 [place] # 0.5 K/mm3 (0.0-0.8) 09/24/18 06:52 Eos # 0.2 K/mm3 (0.0-0.4) 09/24/18 06:52 Baso # 0.1 K/mm3 (0.0-0.1) 09/24/18 06:52 Seg Neutrophils % 51.4 % (40.0-70.0) 09/24/18 06:52 Seg Neutrophils # 2.9 K/mm3 (1.8-7.7) 09/24/18 06:52 Sodium 144 mmol/L (137-145) D 09/24/18 06:52 Potassium 3.4 mmol/L (3.6-5.0) L 09/24/18 06:52 Chloride 105.3 mmol/L (98-107) 09/24/18 06:52 Carbon Dioxide 27 mmol/L (22-30) 09/24/18 06:52 Anion Gap 15 mmol/L 09/24/18 06:52 BUN 4 mg/dL (7-17) L 09/24/18 06:52 Creatinine 0.7 mg/dL (0.7-1.2) 09/24/18 06:52 Estimated GFR > 60 ml/min 09/24/18 06:52 BUN/Creatinine Ratio 6 % 09/24/18 06:52 Glucose 94 mg/dL (65-100) 09/24/18 06:52 Lactic Acid 0.80 mmol/L (0.7-2.0) 09/23/18 05:45 Calcium 8.3 mg/dL (8.4-10.2) L 09/24/18 06:52 Magnesium 2.30 mg/dL (1.7-2.3) 09/24/18 06:52 Iron 11 ug/dL (37-170) L 09/23/18 15:18 TIBC 380 mcg/dL (250-450) 09/23/18 15:18 Total Bilirubin 0.20 mg/dL (0.1-1.2) 09/23/18 03:09 AST 19 units/L (5-40) 09/23/18 03:09 ALT 17 units/L (7-56) 09/23/18 03:09 Alkaline Phosphatase 45 units/L (35-129) 09/23/18 03:09 Total Protein 6.1 g/dL (6.3-8.2) L 09/23/18 03:09 Albumin 3.8 g/dL (3.9-5) L 09/23/18 03:09 Albumin/Globulin Ratio 1.7 % 09/23/18 03:09 Lipase 41 units/L (13-60) 09/23/18 05:45 Urine Color Yellow (Yellow) 09/23/18 04:35 Urine Turbidity Slightly-cloudy (Clear) 09/23/18 04:35 Urine pH 5.0 (5.0-7.0) 09/23/18 04:35 Ur Specific [place] 1.003 (1.003-1.030) 09/23/18 04:35 Urine Protein <15 mg/dl mg/dL (Negative) 09/23/18 04:35 Urine Glucose (UA) Neg mg/dL (Negative) 09/23/18 04:35 Urine Ketones Neg mg/dL (Negative) 09/23/18 04:35 Urine Blood Neg (Negative) 09/23/18 04:35 Urine Nitrite Neg (Negative) 09/23/18 04:35 Urine Bilirubin Neg (Negative) 09/23/18 04:35 Urine Urobilinogen < 2.0 mg/dL (<2.0) 09/23/18 04:35 Ur Leukocyte Esterase Neg (Negative) 09/23/18 04:35 Urine WBC (Auto) 4.0 /HPF (0.0-6.0) 09/23/18 04:35 Urine RBC (Auto) 1.0 /HPF (0.0-6.0) 09/23/18 04:35 U Epithel Cells (Auto) 3.0 /HPF (0-13.0) 09/23/18 04:35 Urine Bacteria (Auto) 1+ /HPF (Negative) 09/23/18 04:35 Urine Mucus Few /HPF 09/23/18 04:35 Blood Type AB POSITIVE 09/23/18 03:25 Antibody Screen Negative 09/23/18 03:25
[2018-09-24] MEDS ORDERED: NACL 0.9% 1000 ML 1,000 ML IV SCH (12:00)
[2018-09-24] MEDS ORDERED: WATER FOR IRRIG STERILE IR ONE (12:07)
[2018-09-24] MEDS ORDERED: VERSED ONE (12:25)
[2018-09-24] MEDS ORDERED: DIPRIVAN 10 MG/ML IV ONE (12:25)
--- NOTE | 2018-09-24 12:36 | Operative Report ---
Operative Report Operative Report: Esophagogastroduodenoscopy Procedure Note with Biopsies Date of procedure: 09/24/2018 Endoscopist: Han Blair Pre-op diagnosis/indication: Upper GI bleed Post-op diagnosis: Large cratered ulcer in duodenal bulb (clean based); multiple small gastric superficial ulcers in antrum MEDICATIONS: MAC COMPLICATIONS: No immediate complications ESTIMATED BLOOD LOSS: Minimal DESCRIPTION OF PROCEDURE: After consent was obtained, the patient was placed in the left lateral decubitis position. The [email or web address] endoscope was inserted into the patient's mouth under direct vision and advanced to the 2nd portion of the duodenum without difficulty. The patient tolerated the procedure well. The views of the mucosa were good. The patient's vital signs were monitored continuously throughout the procedure. FINDINGS: The esophagus appeared normal. There were two superficial clean based ulcers in the antrum of the stomach. There was moderate erythema in the distal antrum/pre-pylorus. Biopsies were obtained from the stomach to evaluate for H pylori. There was a large (~2 x 2 cm) cratered ulcer in the duodenal bulb. The ulcer was clean based without high risk bleeding stigmata. The surrounding mucosa was inflamed and erythematous. The rest of the duodenum appeared normal with bile seen throughout the visualized portion of the duodenum. IMPRESSION: 1. Large duodenal, clean based ulcer - likely source of recent acute blood loss anemia. No high risk bleeding lesions seen during the procedure. 2. Clean based superficial gastric ulcers. Biopsies obtained from the stomach to rule out H pylori. RECOMMENDATIONS: -okay to restart diet -follow-up path -avoid NSAID medications -PPI BID dosing for 2 months, then once daily -okay to d/c tomorrow if H/H stable and no further bleeding -f/u in GI clinic in 2-3 weeks
--- NOTE | 2018-09-24 15:12 | Anesthesia Day of Surgery ---
Anesthesia Day of Surgery - Day of Surgery Patient Examined: Yes Patient H&P Reviewed: Yes Patient is NPO: Yes Beta Blockers: No Cardiac Clearance: No
--- NOTE | 2018-09-24 15:13 | Anesthesia Day of Surgery ---
Anesthesia Day of Surgery - Day of Surgery Patient Examined: Yes Patient H&P Reviewed: Yes Patient is NPO: Yes Beta Blockers: No Cardiac Clearance: No Pulmonary Clearance: No
--- NOTE | 2018-09-24 15:14 | Anesthesia Consultation ---
Anesthesia Consult and Med Hx Date of service: 09/24/18 - Airway Anesthetic Teeth Evaluation: Good ROM Head & Neck: Adequate Mental/Hyoid Distance: Adequate Mallampati Class: Class III Intubation Access Assessment: Good - Pulmonary Exam CTA: Yes - Cardiac Exam Cardiac Exam: No Murmur - Pre-Operative Health Status ASA Pre-Surgery Classification: ASA3 Proposed Anesthetic Plan: MAC - Pulmonary Hx Smoking: Yes COPD: Yes Hx Pneumonia: Yes - Cardiovascular System Hx Hypertension: Yes
[2018-09-24] MEDS: CALAN SR PO SCH (15:18)
[2018-09-24] MEDS: PROTONIX IV SCH ×2 (15:19→21:33)
[2018-09-24] MEDS: SODIUM CHLORIDE FLUSH SYRINGE 10 ML IV SCH (21:37)
--- NOTE | 2018-09-25 09:56 | Gastroenterology Progress Note ---
<SHANDRA SIMS - Last Filed: 09/25/18 09:47> Assessment and Plan 1.epigastric pain 2.N/V 3.GI bleed? 4.CGE/black stool-resolved -afebrile -WBC, LFTs, and lipase-WNL -stool occult negative -abd U/S negative -abd CT 09/15/18 w/o acute process -colonoscopy about 2-3 years ago which showed hemorrhoids and was treated with hemorrhoidectomy per pt report -H/H 7.8/25.7-stable trended down -continue to monitor H/H and transfuse as needed -s/p EGD yesterday that showed a large duodenal clean based ulcer (likely source of recent blood loss anemia) and clean based superficial gastric ulcers- no high risk bleeding lesions -bx results pending-f/u in clinic -clinically, patient is stable with no active signs of bleeding. Reports feeling better with no abd pain or N/V. Tolerating diet. -avoid NSAIDs -continue PPI BID x 2 months, then daily -continue supportive care -patient okay to be d/c per GI standpoint on high dose PPI with f/u in ~ 2weeks in clinic -need for f/u discussed with patient with understanding voiced-office inf ormation/card given to pt -will sign off, please call if needed Subjective Date of service: 09/25/18 Principal diagnosis: GI bleed Interval history: No acute distress. Reports feeling much better with no abd pain, N/V, or active signs of bleeding. Tolerating diet. Objective - Constitutional Vitals: Temp Pulse Resp BP Pulse Ox 98.4 F 71 18 147/76 99 09/25/18 06:10 09/25/18 06:10 09/25/18 06:10 09/25/18 06:10 09/25/18 06:10 General appearance: no acute distress - EENT Eyes: PERRL, EOM intact ENT: hearing intact - Respiratory Respiratory: bilateral: diminished - Cardiovascular Rhythm: regular Heart Sounds: Present: S1 & S2 - Gastrointestinal General gastrointestinal: Present: soft, non-tender, non-distended, normal bowel sounds - Neurologic Neurological: alert and oriented x3 - Labs CBC & Chem 7: 09/24/18 06:52 09/24/18 06:52 <NICOLASA YUN Last Filed: 09/25/18 11:05> Assessment and Plan Pt seen and examined. Agree with note above. F/u in GI clinic in 2 weeks. Objective - Constitutional Vitals: Temp Pulse Resp BP Pulse Ox 98.4 F 71 18 140/80 99 09/25/18 06:10 09/25/18 06:10 09/25/18 06:10 09/25/18 10:50 09/25/18 06:10 - Labs CBC & Chem 7: 09/24/18 06:52 09/24/18 06:52
[2018-09-25] MEDS: CALAN SR PO SCH (10:50)
[2018-09-25] MEDS ORDERED: PROTONIX PO SCH (11:00)
--- NOTE | 2018-09-25 11:45 | Discharge Summary ---
Providers - Providers Date of Admission: 09/23/18 05:42 Date of discharge: 09/25/18 Attending physician: MERLE RAMOS 09/23/18 04:31 Consult to Physician [CONS] Stat Comment: Dr. Van spoke with Dr. Jara @ 0430 Consulting Provider: MAUREEN JARA Physician Instructions: Reason For Exam: GI BLEED Primary care physician: [facility] MAYURI SOL MD Hospitalization Condition: Stable Procedures: EGD Hospital course: HPI: Patient is a 58 year old female with history of COPD and hy pertension who presented to the ED on account of generalized abdominal pain. She described it as sharp in character, rated 10 over 10, nonradiating and constant in duration. She also reported coffee-ground emesis and passage of dark stool. She has associated headaches, lightheadedness and generalized weakness. No constipation, diarrhea, dysuria or frequency. She denied chest pain, shortness of breath, palpitation, fever, chills, cough, leg swelling, sore throat, runny nose or congestion, orthopnea or PND. No syncope or loss of consciousness. She denies chronic NSAID use. Patient stated that she recently went to [facility] and was told that she has colitis. She reported having colonoscopy about 2 or 3 years ago and was found to have hemorrhoid for which she underwent hemorrhoidectomy. Brief Hospital course: Patient was [facility], managed with IV Protonix BID, seen in consultation by GI team and underwent EGD which revealed IMPRESSION: 1. Large duodenal, clean based ulcer - likely source of recent acute blood loss anemia. No high risk bleeding lesions seen during the procedure. 2. Clean based superficial gastric ulcers. Biopsies obtained from the stomach to rule out H pylori. Hemoglobin was low on admission. Patient was cleared for discharge by the GI team with outpatient follow up. Patient denied any further abdominal pain. Counseled about need for compliance with Protonix and the need to follow up with the GI specialist in the office for her biospy results. Counseled to quit tobacco abuse. Patient was AO x 3 and voiced understanding to my discussions with her. Monitor for abnormal Bleeding and return to the hospital for evaluation. Disposition: TO HOME OR SELFCARE Time spent for discharge: more than 35 mins spent - Discharge Diagnoses (1) GI (gastrointestinal hemorrhage) Status: Resolved Comment: continue Protonix and follow up with the GI specialist. (2) Abdominal pain Status: Resolved Qualifiers: Abdominal location: generalized Qualified Code(s): R10.84 - Generalized abdominal pain (3) Acute on chronic blood loss anemia Status: Resolved Comment: monitor for abnormal bleeding and return to the ER for evaluation (4) Duodenal ulcer disease Status: Acute Comment: continue high dose PPI per GI team,. Follow up for the biospy result at the GI team's office Core Measure Documentation - Palliative Care Palliative Care/ Comfort Measures: Not Applicable - Core Measures Any of the following diagnoses?: none Exam - Constitutional Vitals: Temp Pulse Resp BP Pulse Ox 98.4 F 71 18 140/80 99 09/25/18 06:10 09/25/18 06:10 09/25/18 06:10 09/25/18 10:50 09/25/18 06:10 General appearance: Present: no acute distress, other (in no acute distress) - EENT Eyes: Present: PERRL, EOM intact ENT: hearing intact, clear oral mucosa - Neck Neck: Present: supple, normal ROM - Respiratory Respiratory: bilateral: CTA, negative: diminished, rales, rhonchi, wheezing - Cardiovascular Rhythm: regular Heart Sounds: Present: S1 & S2 - Extremities Extremities: pulses symmetrical, No edema, normal temperature, normal color - Abdominal General gastrointestinal: Present: soft, non-tender, non-distended, normal bowel sounds Female genitourinary: Present: deferred - Rectal Rectal Exam: deferred - Integumentary Integumentary: Present: clear, warm, dry - Musculoskeletal Musculoskeletal: strength equal bilaterally - Psychiatric Psychiatric: appropriate mood/affect, intact judgment & insight, cooperative - Neurologic Neurologic: CNII-XII intact, moves all extremities - Allied Health Allied health notes reviewed: nursing, social work, case management Plan Activity: no restrictions Weight Bearing Status: Full Weight Bearing Diet: low cholesterol Special Instructions: record daily weights, record daily BP diary, smoking cessation Follow up with: PRIMARY CARE, [Referring] - 3-5 Days Prescriptions: Ferrous Sulfate [Feosol 325 MG tab] 325 mg PO QDAY 30 Days #30 tablet Pantoprazole [Protonix TAB] 40 mg PO BID #60 tablet
[2018-09-25 11:55] VITALS: BP 149/73
[2018-09-25] MEDS ORDERED: FEOSOL PO SCH (12:30)
[2018-09-25] MEDS ORDERED: K-DUR PO ONE (12:32)
== END 2018-09-25 14:06 | disposition home or self-care (01) | DRG 378 ==
LOC: ED 02:47 → 3A 05:42
PROVIDERS: ADMIT Internal Medicine; ATTEND Family Medicine
PROC: 0DB68ZX Excision of Stomach, Via Natural or Artificial Opening Endoscopic, Diagnostic (ICD-10-PCS; principal; 2018-09-24)
DX: K26.4 Chronic or unspecified duodenal ulcer with hemorrhage (principal); D62 Acute posthemorrhagic anemia; E87.2 Acidosis; I95.9 Hypotension, unspecified; K25.4 Chronic or unspecified gastric ulcer with hemorrhage; J44.9 Chronic obstructive pulmonary disease, unspecified; I10 Essential (primary) hypertension; F17.210 Nicotine dependence, cigarettes, uncomplicated; F32.9 Major depressive disorder, single episode, unspecified; G47.33 Obstructive sleep apnea (adult) (pediatric); Z88.6 Allergy status to analgesic agent; Z79.51 Long term (current) use of inhaled steroids; Z71.6 Tobacco abuse counseling
CPT/HCPCS: 36415; 74022; 76700; 80048; 80053; 81001; 82140; 82271; 83550; 83690; 83735; 85014; 85018; 85025; 86850; 86900; 86901; 88305; 88342; 96361; 96365; 96375; 99406; G0378; A9270-GY; C9113; J2250; J2270; J2405; J2704; J3480; J7030

== ENCOUNTER 2019-03-03 11:38 | Inpatient (IN) | payer MEDICAID ==
--- NOTE | 2019-03-03 11:43 | Emergency Department Report ---
Blank Doc - Documentation Documentation: This is a 58-year-old female that presents with SOB and coughing. This initial assessment/diagnostic orders/clinical plan/treatment(s) is/are subject to change based on patient's health status, clinical progression and re- assessment by fellow clinical providers in the ED. Further treatment and workup at subsequent clinical providers discretion. Patient/guardians urged not to elope from the ED as their condition may be serious if not clinically assessed and managed. Initial orders include: 1- Patient sent to [facility] for further evaluation and treatment 2- labs 3-EKG 4- CXR
[2019-03-03] MEDS ORDERED: ATROVENT IH ONE (11:44)
[2019-03-03] MEDS ORDERED: PROVENTIL IH ONE (11:44)
[2019-03-03] MEDS ORDERED: DECADRON IV ONE (11:44)
[2019-03-03] MEDS ORDERED: MAGNESIUM SULFATE 2GM/50ML 2 GM/50 ML BAG IV ONE (11:57)
--- NOTE | 2019-03-03 11:59 | Emergency Department Report ---
ED Shortness of Breath HPI - General Chief Complaint: Dyspnea/Respdistress Stated Complaint: LARRY Time Seen by Provider: 03/03/19 11:52 Source: patient Mode of arrival: Ambulatory Limitations: No Limitations - History of Present Illness Initial Comments: Patient is a 58-year-old female that presents to the emergency room with complaints of shortness of breath. Patient states she is always short of breath but today it worsened. Patient states she has a history of COPD. Patient states she has a cough. Patient states that she's been coughing for about 3 days. Patient denies fever chills. Patient denies chest pain. Patient states she's been seeing a appliance mechanic for a upper GI bleed and melena. Patient states she was here at the hospital for labs but was not able to get that done due to the fact that she became short of breath. MD Complaint: shortness of breath, cough -: Sudden Severity: severe Consistency: constant Improves With: rest, bronchodilators Worsens With: exertion, movement, coughing, inspiration Known History Of: COPD Context: recent URI Associated Symptoms: cough - Related Data Home Medications Medication Instructions Recorded Confirmed Last Taken Atorvastatin [Lipitor] 40 mg PO QDAY 09/23/18 09/23/18 Unknown Ciprofloxacin HCl [Ciprofloxacin 500 mg PO BID 09/23/18 09/23/18 Unknown TAB] Verapamil ER [Calan SR] 180 mg PO QDAY 09/23/18 09/23/18 Unknown metroNIDAZOLE [Metronidazole] 500 mg PO TID 09/23/18 09/23/18 Unknown Previous Rx's Medication Instructions Recorded Last Taken Type Dicyclomine [Bentyl] 20 mg PO QID PRN #20 tablet 09/15/18 Unknown Rx Ondansetron [Zofran ODT TAB] 4 mg PO Q8HR PRN #20 tab.rapdis 09/15/18 Unknown Rx Ferrous Sulfate [Feosol 325 MG tab] 325 mg PO QDAY 30 Days #30 tablet 09/25/18 Unknown Rx Pantoprazole [Protonix TAB] 40 mg PO BID #60 tablet 09/25/18 Unknown Rx Allergies Allergy/AdvReac Type Severity Reaction Status Date / Time lisinopril AdvReac Unknown Verified 03/03/19 11:42 ED Review of Systems ROS: Stated complaint: LARRY Other details as noted in HPI Constitutional: denies: chills, fever Eyes: denies: eye pain, eye discharge, vision change ENT: denies: ear pain, throat pain Respiratory: cough, shortness of breath, SOB with exertion, SOB at rest. denies: wheezing Cardiovascular: denies: chest pain, palpitations Endocrine: no symptoms reported Gastrointestinal: melena. denies: abdominal pain, nausea, diarrhea Genitourinary: denies: urgency, dysuria, discharge Musculoskeletal: denies: back pain, joint swelling, arthralgia Skin: denies: rash, lesions Neurological: denies: headache, weakness, paresthesias Psychiatric: denies: anxiety, depression Hematological/Lymphatic: denies: easy bleeding, easy bruising ED Past Medical Hx - Past Medical History Previous Medical History?: Yes Hx Hypertension: Yes Hx Psychiatric Treatment: Yes Hx COPD: Yes Additional medical history: Depression, Sleep apnea , Cluster headaches, Cholitis - Surgical History Past Surgical History?: Yes Additional Surgical History: hemmoroids, - Family History Family history: no significant - Social History Smoking Status: Current Every Day Smoker Substance Use Type: Alcohol - Medications Home Medications: Home Medications Medication Instructions Recorded Confirmed Last Taken Type Dicyclomine [Bentyl] 20 mg PO QID PRN #20 tablet 09/15/18 09/23/18 Unknown Rx Ondansetron [Zofran ODT TAB] 4 mg PO Q8HR PRN #20 tab.rapdis 09/15/18 09/23/18 Unknown Rx Atorvastatin [Lipitor] 40 mg PO QDAY 09/23/18 09/23/18 Unknown History Ciprofloxacin HCl [Ciprofloxacin 500 mg PO BID 09/23/18 09/23/18 Unknown History TAB] Verapamil ER [Calan SR] 180 mg PO QDAY 09/23/18 09/23/18 Unknown History metroNIDAZOLE [Metronidazole] 500 mg PO TID 09/23/18 09/23/18 Unknown History Ferrous Sulfate [Feosol 325 MG tab] 325 mg PO QDAY 30 Days #30 tablet 09/25/18 Unknown Rx Pantoprazole [Protonix TAB] 40 mg PO BID #60 tablet 09/25/18 Unknown Rx ED Physical Exam - General Limitations: No Limitations General appearance: alert, in distress (KI-[id number]-vcw-year-old male questionable Alai) - Head Head exam: Present: atraumatic, normocephalic - Eye Eye exam: Present: normal appearance - ENT ENT exam: Present: mucous membranes moist - Neck Neck exam: Present: normal inspection - Respiratory Respiratory exam: Present: respiratory distress, wheezes, rhonchi - Cardiovascular Cardiovascular Exam: Present: regular rate, normal rhythm. Absent: systolic murmur, diastolic murmur, rubs, gallop - GI/Abdominal GI/Abdominal exam: Present: soft, normal bowel sounds. Absent: distended, tenderness, guarding - Extremities Exam Extremities exam: Present: normal inspection - Back Exam Back exam: Present: normal inspection - Neurological Exam Neurological exam: Present: alert, oriented X3 - Psychiatric Psychiatric exam: Present: normal affect, normal mood - Skin Skin exam: Present: warm, dry, intact, normal color. Absent: rash ED Course Vital Signs 03/03/19 03/03/19 03/03/19 11:42 11:56 12:01 Temperature 97.6 F Pulse Rate 115 H 89 79 Respiratory 26 H 15 16 Rate Blood Pressure 161/109 137/69 O2 Sat by Pulse 94 97 96 Oximetry 03/03/19 03/03/19 03/03/19 12:15 12:31 12:45 Temperature Pulse Rate 76 95 H Respiratory 19 20 Rate Blood Pressure 137/69 137/69 137/69 O2 Sat by Pulse 98 94 94 Oximetry 03/03/19 03/03/19 03/03/19 12:50 13:01 13:15 Temperature Pulse Rate 94 H 82 Respiratory 17 17 11 L Rate Blood Pressure 137/69 137/69 O2 Sat by Pulse 98 93 94 Oximetry 03/03/19 03/03/19 13:31 13:45 Temperature Pulse Rate Respiratory 15 14 Rate Blood Pressure 137/69 137/69 O2 Sat by Pulse 93 100 Oximetry - Reevaluation(s) Reevaluation #1: Patient states she still little better but is complaining of right rib pain. Patient will be given Dilaudid. Patient also found to be hypoxic and will be placed on oxygen. 03/03/19 13:46 Reevaluation #2: I discussed all results the patient. Discussed plan of care patient. patient will be admitted to the hospitalist service. 03/03/19 14:29 - Consultations Consultation #1: GI consulted and I spoke with the nurse practitioner for [facility]. GI will see the patient. 03/03/19 14:01 GI states the patient is guaiac negative and they will take care of the patient after her lungs are improved. 03/03/19 14:29 Consultation #2: Hospitalist consulted for admission. Hospitalist to admit patient. 03/03/19 14:35 ED Medical Decision Making - Lab Data Result diagrams: 03/03/19 Unknown 03/03/19 13:06 - EKG Data -: EKG Interpreted by Me EKG shows normal: sinus rhythm, axis, intervals, QRS complexes, ST-T waves Rate: normal - Radiology Data Radiology results: report reviewed CHEST 2 VIEWS INDICATION / CLINICAL INFORMATION: Chest Pain. COMPARISON: Chest x-ray on 09/23/2018. FINDINGS: SUPPORT DEVICES: None. HEART / MEDIASTINUM: Normal heart size. Atherosclerosis in the thoracic aorta. LUNGS / PLEURA: No significant pulmonary or pleural abnormality. No pneumothor ax. ADDITIONAL FINDINGS: No significant additional findings. IMPRESSION: 1. No acute findings. - Medical Decision Making Patient is a 58-year-old female transferred from with shortness of breath and difficulty breathing. Patient found have a COPD exacerbation. Patient required multiple medications and is still wheezing but improved. Patient given Dilaudid for her rib pain from coughing. Patient just x-ray negative. Patient's labs are unremarkable. Patient admitted to the hospitalist service - Differential Diagnosis COPD exacerbation. Shortness of breath. Difficulty breathing. Hypoxia. Critical Care Time: Yes Critical care attestation.: If time is entered above; I have spent that time in minutes in the direct care of this critically ill patient, excluding procedure time. Critical Care Time: 35 minutes ED Disposition Clinical Impression: COPD exacerbation, Hypoxia, SOB (shortness of breath), Cough, Melena Disposition: OP ADMIT IP TO THIS HOSP Is pt being admited?: Yes Does the pt Need Aspirin: No Condition: Critical Time of Disposition: 14:35
[2019-03-03 12:29] LABS: Hematocrit 37.2 % (30.3-42.9); Hemoglobin 12.4 gm/dl (10.1-14.3); Mean Corpuscular HGB Conc 33 % (30-34); Mean Corpuscular Volume 86 fl (79-97); Platelet Count 227 K/mm3 (140-440); Red Blood Count 4.31 M/mm3 (3.65-5.03)
[2019-03-03 12:35] LABS: Red Cell Distribution Width 29.8 % (13.2-15.2)
[2019-03-03 12:39] LABS: INR 1.04 (0.87-1.13)
[2019-03-03 12:40] LABS: Partial Thromboplastin Time 23.5 Sec. (24.2-36.6)
--- NOTE | 2019-03-03 13:17 | XRay Report ---
CHEST 2 VIEWS INDICATION / CLINICAL INFORMATION: Chest Pain. COMPARISON: Chest x-ray on 09/23/2018. FINDINGS: SUPPORT DEVICES: None. HEART / MEDIASTINUM: Normal heart size. Atherosclerosis in the thoracic aorta. LUNGS / PLEURA: No significant pulmonary or pleural abnormality. No pneumothorax. ADDITIONAL FINDINGS: No significant additional findings. IMPRESSION: 1. No acute findings. Signer Name: Dewey Reyna MD Signed: 03/03/2019 1:13 PM Workstation Name: [id number]
[2019-03-03] MEDS ORDERED: DILAUDID IV ONE (13:46)
[2019-03-03] MEDS ORDERED: DUONEB *Not for PRN Use IH ONE (13:48)
[2019-03-03 14:21] LABS: BUN/Creatinine Ratio 17; Blood Urea Nitrogen 10 mg/dL (7-17); Calcium 9.1 mg/dL (8.4-10.2); Hemolysis Index 117
[2019-03-03] MEDS ORDERED: DILAUDID ONE ×2 (14:27→15:29)
[2019-03-03] MEDS ORDERED: ZOFRAN ODT PO PRN (14:33)
[2019-03-03] MEDS ORDERED: BENTYL PO PRN (14:33)
[2019-03-03] MEDS ORDERED: ZOFRAN IV PRN (14:35)
[2019-03-03] MEDS ORDERED: SODIUM CHLORIDE FLUSH SYRINGE 10 ML IV PRN (14:35)
[2019-03-03] MEDS ORDERED: TYLENOL PO PRN (14:35)
[2019-03-03] MEDS ORDERED: PROVENTIL IH PRN (14:35)
--- NOTE | 2019-03-03 14:40 | History and Physical Report ---
History of Present Illness Chief complaint: I keep coughing and wheezing History of present illness: 58 YO Female with PUD, HLD, HTN, COPD, Depression, CATHLEEN, Nicotine Dependence, Cluster Headache presents to ED for evaluation. Pt states that she has experienced shortness of breath over the past 4 days with worsening symptoms over the past 3 days. Pt acknowledges increased productive cough with clear sputum, increased nebulizer use without relief. Pt acknowledges continued daily smoking. Pt also reports history of dark stool. Pt was scheduled for outpatient endoscopy as per GI for evaluation of melena- but the patient was found to have the aforementioned respiratory symptoms and was instructed to seek further care at [facility]. Pt transported to [facility] via private vehicle. PT seen and evaluated in ED and found to have COPD Exacerbation complicated by Acute Hypoxemic Respiratory Failure. Pt admitted to medical floor. Pt treated with supplemental oxygen, nebulizer therapy, and steroid therapy with improvement in symptoms. Pt also found to have evidence of GI Bleed. Pt admitted to medical floor. GI consulted in ED. No prior admission for review. All medication listed at time of admission has been reconciled. Pt denies fever, chills, CP, Palpitations, NVD, Trauma, hemoptysis, prolonged travel/immobility, Individual/family history of DVT/PE/Bleeding/Blood Clotting Disorders, Ingestion of food/water from new/dif ferent sources. Past History Past Medical History: hypertension, hyperlipidemia, other (PUD, Cluster Headache, Depresssion, CATHLEEN) Past Surgical History: Other (hemorrhoid surgery) Social history: single, smoking Family history: hypertension Medications and Allergies Allergies Allergy/AdvReac Type Severity Reaction Status Date / Time lisinopril AdvReac Unknown Verified 03/03/19 11:42 Home Medications Medication Instructions Recorded Confirmed Last Taken Type Verapamil ER [Calan SR] 180 mg PO QDAY 09/23/18 03/03/19 Unknown History Atorvastatin [Lipitor Tab] 40 mg PO DAILY 03/03/19 03/03/19 Unknown History Famotidine [Pepcid] 40 mg PO BID 03/03/19 03/03/19 Unknown History Active Meds: Active Medications Acetaminophen (Tylenol) 650 mg PO Q4H PRN PRN Reason: Pain MILD(1-3)/Fever >100.5/SOTOMAYOR Albuterol (Proventil) 2.5 mg IH Q4HRT PRN PRN Reason: Shortness Of Breath Atorvastatin Calcium (Lipitor) 40 mg PO QDAY [facility] Dicyclomine HCl (Bentyl) 20 mg PO QID PRN PRN Reason: abdominal pain Ferrous Sulfate (Feosol) 325 mg PO QDAY [facility] Azithromycin 500 mg/ Sodium (Chloride) 250 mls @ 250 mls/hr IV Q24HR [facility]; Protocol Methylprednisolone Sodium Succinate (Solu-Medrol) 40 mg IV Q12HR [facility] Ondansetron HCl (Zofran Odt) 4 mg PO Q8HR PRN PRN Reason: Vomiting Ondansetron HCl (Zofran) 4 mg IV Q8H PRN PRN Reason: Nausea And Vomiting Pantoprazole Sodium (Protonix) 40 mg PO BID [facility] Sodium Chloride (Sodium Chloride Flush Syringe 10 Ml) 10 ml IV BID [facility] Sodium Chloride (Sodium Chloride Flush Syringe 10 Ml) 10 ml IV PRN PRN PRN Reason: LINE FLUSH Verapamil HCl (Calan Sr) 180 mg PO QDAY [facility] Review of Systems Constitutional: no weight loss, no weight gain, no fever, no chills Ears, nose, mouth and throat: no ear pain, no ear discharge, no tinnitis, no decreased hearing, no nasal congestion Breasts: no change in shape, no swelling, no mass Cardiovascular: no chest pain, no orthopnea, no palpitations, no rapid/irregular heart beat, no edema, no lightheadedness Respiratory: cough, cough with sputum, excessive sputum, shortness of breath, wheezing, no hemoptysis, no pain, no pain on inspiration Gastrointestinal: melena, no nausea, no vomiting, no diarrhea, no constipation Genitourinary Female: no pelvic pain, no flank pain, no menorrhagia, no dysuria, no urinary frequency, no urgency Rectal: no pain, no incontinence, no bleeding Musculoskeletal: no neck stiffness, no neck pain, no shooting arm pain, no arm numbness/tingling Integumentary: no rash, no pruritis, no redness, no sores, no wounds Neurological: no head injury, no transient paralysis, no parathesias, no numbness, no tingling Psychiatric: no anxiety, no memory loss, no change in sleep habits, no sleep disturbances, no change in appetite, no change in libido, no suicidal ideation Endocrine: no cold intolerance, no heat intolerance, no polyphagia, no excessive thirst, no polydipsia, no polyuria, no nocturia, no excessive sweating, no fl ushing Hematologic/Lymphatic: no easy bruising, no easy bleeding, no lymphadenopathy, no lymphedema Allergic/Immunologic: no urticaria, no allergic rhinitis, no persistent infections, no anaphylaxis Exam - Constitutional Vitals: Temp Pulse Resp BP Pulse Ox 97.6 F 82 14 137/69 100 03/03/19 11:42 03/03/19 13:15 03/03/19 13:45 03/03/19 13:45 03/03/19 13:45 General appearance: Present: mild distress - EENT Eyes: Present: PERRL ENT: hearing intact, clear oral mucosa - Neck Neck: Present: supple, normal ROM - Respiratory Respiratory effort: labored Respiratory: bilateral: diminished, rhonchi - Cardiovascular Heart Sounds: Present: S1 & S2. Absent: rub, click - Extremities Extremities: pulses symmetrical, No edema Peripheral Pulses: within normal limits - Abdominal General gastrointestinal: Present: soft, non-tender, non-distended, normal bowel sounds Female genitourinary: Present: normal - Integumentary Integumentary: Present: clear, warm, dry - Musculoskeletal Musculoskeletal: gait normal, strength equal bilaterally - Psychiatric Psychiatric: appropriate mood/affect, intact judgment & insight - Neurologic Neurologic: CNII-XII intact, moves all extremities Results - Labs CBC & Chem 7: 03/03/19 Unknown 03/03/19 14:51 Labs: Abnormal lab results 03/03/19 03/03/19 03/03/19 Range/Units 13:06 Unknown Unknown RDW 29.8 H (13.2-15.2) % APTT 23.5 L (24.2-36.6) Sec. Creatinine 0.6 L (0.7-1.2) mg/dL Assessment and Plan - Patient Problems (1) Respiratory failure Current Visit: Yes Status: Acute Qualifiers: Respiratory failure complication: hypoxia Plan to address problem: Chest X ray, nebulizer therapy, (2) COPD exacerbation Current Visit: No Status: Acute Plan to address problem: Supplemental oxygen, nebulizer therapy, NIPPV as clinically indicated, pulse oximetry, IV steroid therapy, IV antibiotic therapy, Chest X ray, D dimer, CTA C hest. (3) HTN (hypertension) Current Visit: Yes Status: Acute Qualifiers: Hypertension type: essential hypertension Qualified Code(s): I10 - Essential (primary) hypertension Plan to address problem: monitor bp q shift, supportive care. (4) HLD (hyperlipidemia) Current Visit: Yes Status: Acute Qualifiers: Hyperlipidemia type: mixed hyperlipidemia Qualified Code(s): E78.2 - Mixed hyperlipidemia Plan to address problem: balanced diet, low cholesterol diet, (5) CATHLEEN and COPD overlap syndrome Current Visit: Yes Status: Acute Plan to address problem: Supplemental oxygen, nebulizer therapy, NIPPV as clinically indicated, IV steroid therapy, pulse oximetry, balanced diet, increased physical activity at discharge. (6) Duodenal ulcer disease Current Visit: No Status: Acute Plan to address problem: PPI therapy, supportive care. (7) GI (gastrointestinal hemorrhage) Current Visit: No Status: Resolved Qualifiers: GI bleed type/associated pathology: unspecified gastrointestinal hemorrhage type Qualified Code(s): K92.2 - Gastrointestinal hemorrhage, unspecified Plan to address problem: GI consulted, NO transfusion at this time, supportive care, PPI therapy (8) Pulmonary nodule Current Visit: Yes Status: Acute Plan to address problem: Repeat CT chest in 6-12 months for reevaluation of nodule. (9) DVT prophylaxis Current Visit: Yes Status: Acute Plan to address problem: SCD to BLE while in bed, Pt ambulatory,
[2019-03-03 15:18] LABS: BUN/Creatinine Ratio 17; Blood Urea Nitrogen 10 mg/dL (7-17); Calcium 8.7 mg/dL (8.4-10.2); Hemolysis Index 74
--- NOTE | 2019-03-03 15:54 | Gastroenterology Consultation ---
History of Present Illness - Reason for Consult Consult date: 03/03/19 melena Requesting physician: YANELI PEREZ III - History of Present Illness Patient is a 58 y/o female who is well known to our service and was scheduled for an outpatient EGD today to assess for healing of duodenal ulcer (bx + for H pylori; s/p tx with antibiotics) found in August of this year after being hospitalized for GI bleeding and a screening colonoscopy, however upon arriving to our office she had complaints of abd pain with black stool that began this morning, along with SOB. Procedures were cancelled and patient sent to ED for evaluation. Upon admission, she was found to have wheezing/coughing and was admitted for COPD exacerbation. This afternoon patient was resting in bed c/o being hungry and requesting to eat. Denies hematemesis or hematochezia. Rectal exam, revealed light green liquid stool. PMH of HTN, COPD, depression, sleep apnea, and cluster headaches. Past History Past Medical History: other (as per HPI) Past Surgical History: Other (hemorrhoidectomy) Social history: smoking, other (alcohol) Medications and Allergies Allergies Allergy/AdvReac Type Severity Reaction Status Date / Time lisinopril AdvReac Unknown Verified 03/03/19 11:42 Home Medications Medication Instructions Recorded Confirmed Last Taken Type Verapamil ER [Calan SR] 180 mg PO QDAY 09/23/18 03/03/19 Unknown History Atorvastatin [Lipitor Tab] 40 mg PO DAILY 03/03/19 03/03/19 Unknown History Famotidine [Pepcid] 40 mg PO BID 03/03/19 03/03/19 Unknown History Active Meds: Active Medications Acetaminophen (Tylenol) 650 mg PO Q4H PRN PRN Reason: Pain MILD(1-3)/Fever >100.5/[facility]AY[facility] Albuterol (Proventil) 2.5 mg IH Q4HRT PRN PRN Reason: Shortness Of Breath Atorvastatin Calcium (Lipitor) 40 mg PO QDAY [facility] Dicyclomine HCl (Bentyl) 20 mg PO QID PRN PRN Reason: abdominal pain Ferrous Sulfate (Feosol) 325 mg PO QDAY [facility] Azithromycin 500 mg/ Sodium (Chloride) 250 mls @ 250 mls/hr IV Q24HR [facility]; Protocol Methylprednisolone Sodium Succinate (Solu-Medrol) 40 mg IV Q12HR [facility] Ondansetron HCl (Zofran Odt) 4 mg PO Q8HR PRN PRN Reason: Vomiting Ondansetron HCl (Zofran) 4 mg IV Q8H PRN PRN Reason: Nausea And Vomiting Pantoprazole Sodium (Protonix) 40 mg PO BID [facility] Sodium Chloride (Sodium Chloride Flush Syringe 10 Ml) 10 ml IV BID [facility] Sodium Chloride (Sodium Chloride Flush Syringe 10 Ml) 10 ml IV PRN PRN PRN Reason: LINE FLUSH Verapamil HCl (Calan Sr) 180 mg PO QDAY [facility] medications reviewed/updated as required Review of Systems - Review of Systems All systems: negative Respiratory: cough, shortness of breath, wheezing Gastrointestinal: other (black stool) Exam - Constitutional Vital Signs: Temp Pulse Resp BP Pulse Ox 97.6 F 81 17 139/88 96 03/03/19 11:42 03/03/19 14:45 03/03/19 15:31 03/03/19 15:31 03/03/19 15:31 General appearance: no acute distress, obese - Respiratory Respiratory effort: labored (slightly) Respiratory: bilateral: wheezing - Cardiovascular Rhythm: regular - Gastrointestinal General gastrointestinal: Present: soft, non-tender, non-distended, normal bowel sounds Rectal Exam: other (light green liquid stool-diagnostic medical sonographer present during exam (Ryann JOSUE)) - Neurologic Neurological: alert and oriented x3 - Labs CBC & Chem 7: 03/03/19 Unknown 03/03/19 14:51 Lab Results: Laboratory Results - last 24 hr 03/03/19 03/03/19 03/03/19 13:06 14:30 14:51 WBC RBC Hgb Hct MCV MCH MCHC RDW Plt Count PT INR APTT D-Dimer 164.60 Sodium 142 141 Potassium 4.0 3.9 Chloride 101.3 99.3 Carbon Dioxide 26 28 Anion Gap 19 18 BUN 10 10 Creatinine 0.6 L 0.6 L Estimated GFR > 60 > 60 BUN/Creatinine Ratio 17 17 Glucose 69 70 Calcium 9.1 8.7 Troponin T < 0.010 03/03/19 03/03/19 Unknown Unknown WBC 8.9 RBC 4.31 Hgb 12.4 Hct 37.2 MCV 86 MCH 29 MCHC 33 RDW 29.8 H Plt Count 227 PT 13.3 INR 1.04 APTT 23.5 L D-Dimer Sodium Potassium Chloride Carbon Dioxide Anion Gap BUN Creatinine Estimated GFR BUN/Creatinine Ratio Glucose Calcium Troponin T Assessment and Plan 1.melena? 2.H/o PUD 3.COPD exacerbation -H/H WNL (12.4/37.2; improve compared to previous labs) -continue to monitor H/H and transfuse as needed -patient reports black stool that began this am. No hematemesis or hematochezia. Rectal exam revealed light green liquids stool. -currently HD stable -EGD 09/24/18 a large duodenal clean based ulcer and clean based superficial gastric ulcers- no high risk bleeding lesions (bx + for H. pylori; s/p tx with antibiotics) -repeat EGD to assess healing of above ulcer and screening colonoscopy cancelled as outpatient today due to possible melena and respiratory distress -no plan for scopes at this time unless overt bleeding develops, given no current clinical evidence of significant GI bleeding (will likely need to reschedule above procedures as outpatient once respiratory status has improved) -okay to start on diet -start on PPI -avoid NSAIDs -continue supportive care -will follow
--- NOTE | 2019-03-03 16:41 | Cat Scan Report ---
CT angio chest INDICATION / CLINICAL INFORMATION: Chest pain. Shortness of breath. TECHNIQUE: Axial CT images were obtained after injection of Omnipaque 350, 100 cc IV injection. IV contrast usin g CTA protocol. 3 plane MIP / 3D reconstructions were produced. All CT scans at this location are per formed using CT dose reduction for ALARA by means of automated exposure control. COMPARISON: None available. FINDINGS: The lungs contain no mass, infiltrate or pleural fluid. Scattered emphysema and mild interstitial thi ckening is noted. A pleural-based nodule at the right (series 2, image 44) measures 4 mm. Negative for mediastinal mass, adenopathy or fluid collection. Imaging of the upper abdomen is unrema rkable. Negative for aneurysm, dissection or pulmonary embolus. IMPRESSION: 1. Negative for pulmonary embolus. 2. Scattered emphysema and mild interstitial thickening. 3. 4 mm incidental pulmonary nodule. INCIDENTAL PULMONARY NODULE RECOMMENDATIONS Solid Nodule size <6 mm -- Single or Multiple - Low Risk Patient: No routine follow-up - High Risk Patient: Optional CT at 12 months Note These recommendations do not apply to lung cancer screening, patients with immunosuppression, o r patients with known primary cancer. Note Newly detected indeterminate nodule in persons 35 years of age or older. Persons under the age of 35 should not receive follow-up unless there is a known primary cancer. Low Risk Patient -- minimal or absent history of smoking and of other known risk factors. High Risk Patient -- history of smoking or of other known risk factors. Nodule dimensions are average of long and short axes, rounded to the nearest millimeter. Based on 2017 Fleischner Society Guidelines found in Radiology 2017 284:228-243. https://doi.[email or web address] [email or web address] Signer Name: Best Newell MD Signed: 03/03/2019 4:37 PM Workstation Name: [id number]
[2019-03-03 21:19] LABS: Creatine Kinase MB 7.1 ng/mL (0.0-4.0)
[2019-03-03] MEDS: PROTONIX PO SCH (21:47)
[2019-03-03] MEDS: SOLU-Medrol IV SCH (21:47)
[2019-03-03] MEDS: SODIUM CHLORIDE FLUSH SYRINGE 10 ML IV SCH (21:48)
[2019-03-03] MEDS ORDERED: ZANAFLEX PO PRN (21:54)
[2019-03-03 21:59] LABS: Basophils % (Manual) 0 % (0.0-1.8); Eosinophils % (Manual) 0 % (0.0-4.3); Total Cells Counted 100
[2019-03-03 22:00] LABS: Anisocytosis 2+; Dimorphic RBC Yes; Ovalocytes 1+; Platelet Estimate Consistent w Auto; Target Cells 1+
[2019-03-03] MEDS: MUCINEX ER PO SCH (22:33)
[2019-03-03] MEDS: ULTRAM PO PRN (22:33)
[2019-03-04 06:19] LABS: Hematocrit 34.7 % (30.3-42.9); Hemoglobin 11.4 gm/dl (10.1-14.3); Mean Corpuscular HGB Conc 33 % (30-34); Mean Corpuscular Volume 87 fl (79-97); Platelet Count 199 K/mm3 (140-440); Red Blood Count 3.98 M/mm3 (3.65-5.03)
[2019-03-04 06:23] LABS: Red Cell Distribution Width 30.5 % (13.2-15.2)
[2019-03-04 06:45] LABS: Alanine Aminotransferase 223 units/L (7-56); Albumin 3.9 g/dL (3.9-5); BUN/Creatinine Ratio 15; Blood Urea Nitrogen 9 mg/dL (7-17); Calcium 8.5 mg/dL (8.4-10.2); Hemolysis Index 3
[2019-03-04 07:43] LABS: Eosinophils % (Manual) 0 % (0.0-4.3); Monocytes % (Manual) 0 % (0.0-7.3); Total Cells Counted 100
[2019-03-04 07:44] LABS: Anisocytosis 1+; Basophils % (Manual) 0 % (0.0-1.8); Platelet Estimate Consistent w Auto; Poikilocytosis Few
[2019-03-04] MEDS ORDERED: FEOSOL PO SCH (10:00)
--- NOTE | 2019-03-04 11:37 | Progress Note ---
Assessment and Plan (1) Respiratory failure Current Visit: Yes Status: Acute Qualifiers: Respiratory failure complication: hypoxia Plan to address problem: Chest X ray, nebulizer therapy, (2) COPD exacerbation Current Visit: No Status: Acute Plan to address problem: Supplemental oxygen, nebulizer therapy, NIPPV as clinically indicated, pulse oximetry, IV steroid therapy, IV antibiotic therapy, Chest X ray, D dimer, CTA Chest. (3) HTN (hypertension) Current Visit: Yes Status: Acute Qualifiers: Hypertension type: essential hypertension Qualified Code(s): I10 - Essential (primary) hypertension Plan to address problem: monitor bp q shift, supportive care. (4) HLD (hyperlipidemia) Current Visit: Yes Status: Acute Qualifiers: Hyperlipidemia type: mixed hyperlipidemia Qualified Code(s): E78.2 - Mixed hyperlipidemia Plan to address problem: balanced diet, low cholesterol diet, (5) CATHLEEN and COPD overlap syndrome Current Visit: Yes Status: Acute Plan to address problem: Supplemental oxygen, nebulizer therapy, NIPPV as clinically indicated, IV steroid therapy, pulse oximetry, balanced diet, increased physical activity at discharge. (6) Duodenal ulcer disease Current Visit: No Status: Acute Plan to address problem: PPI therapy, supportive care. Plan for endoscopy scheduled outpt patient has no sign or any active GI bleeding (7) Pulmonary nodule Current Visit: Yes Status: Acute Plan to address problem: Repeat CT chest in 6-12 months for reevaluation of nodule. (8) DVT prophylaxis Current Visit: Yes Status: Acute Plan to address problem: SCD to BLE while in bed, Pt ambulatory, Subjective Date of service: 03/04/19 Objective - Constitutional Vitals: Vital Signs - 12hr 03/04/19 05:55 Temperature 98.0 F Pulse Rate 63 Respiratory 20 Rate Blood Pressure 177/91 O2 Sat by Pulse 89 Oximetry - Labs CBC & Chem 7: 03/04/19 06:03 03/04/19 06:03 Labs: Abnormal lab results 03/03/19 03/03/19 03/03/19 Range/Units 13:06 14:51 20:34 RDW (13.2-15.2) % Seg Neuts % (Manual) (40.0-70.0) % Lymphocytes % (Manual) (13.4-35.0) % Monocytes % (Manual) (0.0-7.3) % Lymphocytes # (Manual) (1.2-5.4) K/mm3 Monocytes # (Manual) (0.0-0.8) K/mm3 APTT (24.2-36.6) Sec. Creatinine 0.6 L 0.6 L (0.7-1.2) mg/dL Glucose (65-100) mg/dL AST (5-40) units/L ALT (7-56) units/L Total Creatine Kinase 350 H (30-135) units/L CK-MB (CK-2) 7.1 H (0.0-4.0) ng/mL 03/03/19 03/03/19 03/04/19 Range/Units Unknown Unknown 06:03 RDW 29.8 H 30.5 H (13.2-15.2) % Seg Neuts % (Manual) 91.0 H (40.0-70.0) % Lymphocytes % (Manual) 9.0 L (13.4-35.0) % Monocytes % (Manual) 10.0 H (0.0-7.3) % Lymphocytes # (Manual) 0.6 L (1.2-5.4) K/mm3 Monocytes # (Manual) 0.9 H (0.0-0.8) K/mm3 APTT 23.5 L (24.2-36.6) Sec. Creatinine (0.7-1.2) mg/dL Glucose (65-100) mg/dL AST (5-40) units/L ALT (7-56) units/L Total Creatine Kinase (30-135) units/L CK-MB (CK-2) (0.0-4.0) ng/mL 03/04/19 Range/Units 06:03 RDW (13.2-15.2) % Seg Neuts % (Manual) (40.0-70.0) % Lymphocytes % (Manual) (13.4-35.0) % Monocytes % (Manual) (0.0-7.3) % Lymphocytes # (Manual) (1.2-5.4) K/mm3 Monocytes # (Manual) (0.0-0.8) K/mm3 APTT (24.2-36.6) Sec. Creatinine 0.6 L (0.7-1.2) mg/dL Glucose 205 H (65-100) mg/dL AST 85 H (5-40) units/L ALT 223 H (7-56) units/L Total Creatine Kinase (30-135) units/L CK-MB (CK-2) (0.0-4.0) ng/mL
[2019-03-04] MEDS: ULTRAM PO PRN (12:43)
[2019-03-04] MEDS: SOLU-Medrol IV SCH ×2 (12:43→22:18)
[2019-03-04] MEDS: PROTONIX PO SCH ×2 (12:43→22:18)
[2019-03-04] MEDS: MUCINEX ER PO SCH ×2 (12:44→22:18)
[2019-03-04] MEDS: SODIUM CHLORIDE FLUSH SYRINGE 10 ML IV SCH ×2 (12:44→22:19)
[2019-03-04] MEDS: ZITHROMAX 500 MG in NACL 0.9% 250ML 250 ML IV SCH (12:44)
[2019-03-04] MEDS: CALAN SR PO SCH (15:50)
[2019-03-04] MEDS ORDERED: DUONEB *Not for PRN Use IH ONE (22:37)
[2019-03-05] MEDS: DUONEB *Not for PRN Use IH SCH ×2 (02:25→08:24)
[2019-03-05] MEDS: ULTRAM PO PRN (05:08)
[2019-03-05] MEDS ORDERED: PROVENTIL IH PRN (09:00)
[2019-03-05] MEDS: MUCINEX ER PO SCH (09:46)
[2019-03-05] MEDS: CALAN SR PO SCH (09:46)
[2019-03-05] MEDS: ZITHROMAX 500 MG in NACL 0.9% 250ML 250 ML IV SCH (09:46)
[2019-03-05] MEDS: PROTONIX PO SCH (09:47)
[2019-03-05] MEDS: SOLU-Medrol IV SCH (09:47)
[2019-03-05] MEDS: SODIUM CHLORIDE FLUSH SYRINGE 10 ML IV SCH (09:48)
[2019-03-05 13:02] VITALS: BP 139/92
--- NOTE | 2019-03-05 13:16 | Discharge Summary ---
Providers - Providers Date of Admission: 03/03/19 14:35 Date of discharge: 03/05/19 Attending physician: LYSSA HERNANDEZ 03/03/19 14:30 Consult to Physician [CONS] Routine Comment: Consulting Provider: MAUREEN JARA Physician Instructions: Reason For Exam: melena [facility] Condition: Critical Hospital course: Discharge diagnosis: (1) Respiratory failure Current Visit: Yes Status: Acute Qualifiers: Respiratory failure complication: hypoxia Plan to address problem: Chest X ray, nebulizer therapy, (2) COPD exacerbation Current Visit: No Status: Acute Plan to address problem: Supplemental oxygen, nebulizer therapy, NIPPV as clinically indicated, pulse oximetry, IV steroid therapy, IV antibiotic therapy, Chest X ray, D dimer, CTA Chest. (3) HTN (hypertension) Current Visit: Yes Status: Acute Qualifiers: Hypertension type: essential hypertension Qualified Code(s): I10 - Essential (primary) hypertension Plan to address problem: monitor bp q shift, supportive care. (4) HLD (hyperlipidemia) Current Visit: Yes Status: Acute Qualifiers: Hyperlipidemia type: mixed hyperlipidemia Qualified Code(s): E78.2 - Mixed hyperlipidemia Plan to address problem: balanced diet, low cholesterol diet, (5) CATHLEEN and COPD overlap syndrome Current Visit: Yes Status: Acute Plan to address problem: Supplemental oxygen, nebulizer therapy, NIPPV as clinically indicated, IV steroid therapy, pulse oximetry, balanced diet, increased physical activity at discharge. (6) Duodenal ulcer disease Current Visit: No Status: Acute Plan to address problem: PPI therapy, supportive care. Plan for endoscopy scheduled outpt patient has no sign or any active GI bleeding (7) Pulmonary nodule Current Visit: Yes Status: Acute Plan to address problem: Repeat CT chest in 6-12 months for reevaluation of nodule. (8) DVT prophylaxis Current Visit: Yes Status: Acute Plan to address problem: SCD to BLE while in bed, Pt ambulatory, Disposition: -01 TO HOME OR SELFCARE Time spent for discharge: 34 minutes Core Measure Documentation - Palliative Care Palliative Care/ Comfort Measures: Not Applicable - Core Measures Any of the following diagnoses?: none Exam - Constitutional Vitals: Temp Pulse Resp BP Pulse Ox 98.3 F 80 22 139/92 93 03/05/19 12:23 03/05/19 12:23 03/05/19 12:23 03/05/19 12:23 03/05/19 12:23 General appearance: Present: no acute distress, well-nourished - EENT Eyes: Present: PERRL ENT: hearing intact, clear oral mucosa - Neck Neck: Present: supple, normal ROM - Respiratory Respiratory effort: normal Respiratory: bilateral: CTA - Cardiovascular Heart Sounds: Present: S1 & S2. Absent: rub, click - Extremities Extremities: pulses symmetrical, No edema Peripheral Pulses: within normal limits - Abdominal General gastrointestinal: Present: soft, non-tender, non-distended, normal bowel sounds - Integumentary Integumentary: Present: clear, warm, dry - Musculoskeletal Musculoskeletal: gait normal, strength equal bilaterally - Psychiatric Psychiatric: appropriate mood/affect, intact judgment & insight - Neurologic Neurologic: CNII-XII intact, moves all extremities Plan Activity: advance as tolerated Weight Bearing Status: Weight Bear as Tolerated Diet: low fat, low salt Follow up with: [facility] MD AGA [Primary Care Provider] - 7 Days IGGY GARZA MD [Staff Physician] - 7 Days Prescriptions: predniSONE [Deltasone] 50 mg PO QDAY #5 tab ALBUTEROL Inhaler (OR & NICU) [Proair] 2 puff IH QID PRN #1 vial PRN Reason: Shortness Of Breath Budesonide/Formoterol Fumarate [Symbicort 160-4.5 Mcg Inhaler] 10.2 gm IH BID 30 Days #1 vial Azithromycin [Zithromax TAB] 500 mg PO QDAY #5 tablet
[2019-03-05] MEDS ORDERED: DUONEB *Not for PRN Use IH SCH (14:00)
[2019-03-05] MEDS ORDERED: BROVANA NEBU IH SCH (20:00)
[2019-03-05] MEDS ORDERED: PULMICORT IH SCH (20:00)
== END 2019-03-05 15:40 | disposition home or self-care (01) | DRG 189 ==
LOC: ED 11:38 → 3A 14:35
PROVIDERS: ADMIT Internal Medicine; ATTEND Internal Medicine
PROC: 4A033R1 Measurement of Arterial Saturation, Peripheral, Percutaneous Approach (ICD-10-PCS; principal; 2019-03-03)
PROC: 5A09357 Assistance with Respiratory Ventilation, Less than 24 Consecutive Hours, Continuous Positive Airway Pressure (ICD-10-PCS; 2019-03-03)
PROC: 5A09357 Assistance with Respiratory Ventilation, Less than 24 Consecutive Hours, Continuous Positive Airway Pressure (ICD-10-PCS; 2019-03-04)
DX: J96.01 Acute respiratory failure with hypoxia (principal); J44.1 Chronic obstructive pulmonary disease with (acute) exacerbation; I10 Essential (primary) hypertension; E78.2 Mixed hyperlipidemia; M35.1 Other overlap syndromes; G47.33 Obstructive sleep apnea (adult) (pediatric); K92.2 Gastrointestinal hemorrhage, unspecified; F32.9 Major depressive disorder, single episode, unspecified; F17.200 Nicotine dependence, unspecified, uncomplicated; R91.1 Solitary pulmonary nodule; Z79.899 Other long term (current) drug therapy; Z87.11 Personal history of peptic ulcer disease; Z82.49 Family history of ischemic heart disease and other diseases of the circulatory system
CPT/HCPCS: 36415; 36600; 71046; 71275; 80048; 80053; 82550; 82553; 84484; 85007; 85025; 85379; 85610; 85730; 93005; 93010; 94640; 94660; 94760; 96365; 96375; G0378; A9270-GY; J0456; J1100; J1170; J2405; J2920; J3475; J7050; Q9967